=== PATIENT | male | born 1940 | race Caucasian/White ===

== ENCOUNTER → 2017-10-20 17:15 | Outpatient (REF) | payer MEDICARE, SELFPAY | LOC: LAB 17:15 | PROVIDERS: Visit Provider Urology | DX: N30.20 Other chronic cystitis without hematuria (principal); N40.1 Benign prostatic hyperplasia with lower urinary tract symptoms; R33.9 Retention of urine, unspecified | CPT/HCPCS: 87086; 87088; 87186 ==

== ENCOUNTER → 2017-12-22 16:37 | Outpatient (REF) | payer MEDICARE, SELFPAY | LOC: LAB 16:37 | PROVIDERS: Visit Provider Urology | DX: N39.0 Urinary tract infection, site not specified (principal) | CPT/HCPCS: 87086 ==

== ENCOUNTER 2020-06-03 12:43 | Emergency (ER) | payer MEDICARE, SELFPAY ==
[2020-06-03 12:50] VITALS: BP 107/70; PULSE 86; RESP 17; TEMP 37; O2SAT 98; BMI 29.5
--- NOTE | 2020-06-03 13:16 | HMH.EDUTC ---
[facility] [place] Disposition Clinical Impression: Exposure to COVID-19 virus Disposition: Home, Self-Care Condition on Discharge: Good Instructions: DI for COVID-19 (Suspected or Confirmed ), Coronavirus Disease 2019, Preventing the Spread of Coronavirus Discharge Instructions Additional Instructions: *Monitor Temp, Over the counter Motrin or Tylenol as directed/as needed Tylenol every 4 hours and Motrin every 6 hours (as long as your family doctor has told you that you can take it) for fever or pain. and straight to ER if unable to lower temp less than 101.0 after medication given Follow up IMMEDIATELY for new or worsening symptoms or no Noticeable improvement over the next 48-72 hours. 911 for difficulty breathing or swallowing You were tested for today for COVID19 your test result should be back in the next 24-48 hours, you may call to the [facility] to see if your test results are back in the next 48 hours [phone] [facility] hours are 9am-9pm You was given a handout with instructions for Self Quarantine and Self isolation for while you wait on test results and what to do if they are positive If you are positive the Health Dept will be contacting you also Referrals: Rishi Balderas [Primary Care Provider] - As needed Time of Disposition: 13:26 Medical Decision Making - Ramón Inquiry Pt receiving controlled substance: No Ramón was queried for this patient: No Vital Signs: 06/03/20 12:50 Temperature 98.6 F Temperature Source Oral Pulse Rate [Right Brachial] 86 Respiratory Rate 17 Blood Pressure [Right Arm] 107/70 L Blood Pressure Mean [Right Arm] 82 Blood Pressure Source [Right Arm] Automatic Cuff Blood Pressure Position [Right Arm] Sitting 02 Sat by Pulse Oximetry 98 Oxygen Delivery Method Room Air Orders (Tests/Meds): ORDERS Category Date Time Status Covid-19 Nasal PCR ([facility]) Routine Lab 06/03/20 12:48 Received [facility] HPI - General Stated complaint: covid test Time Seen by Provider: 06/03/20 13:16 Mode of Arrival: Ambulatory Source of Information: Patient Limitations: No Limitations Description of Symptoms (Recalled from Triage Doc. by RN): COVID TEST D/T EXPOSURE. C/O FATIGUE AND HEADACHE HEENT Symptoms (Recalled from RN notes): Yes Resp Symptoms (Recalled from RN notes): No Skin Symptoms (Recalled from RN notes): No MS Symptoms (Recalled from RN notes): No Functional Status (Recalled from RN notes): WNL - History of Present Illness Provider Complaint: Patient state that he was recently around his sister and she tested positive for COVID State that for the last week or so he has been feeling tired, low grade fever and laying around alot State that he was worried so he came in to get tested for COVID - Related Data Home Medications Medication Instructions Recorded Confirmed aspirin 81 mg chewable tablet 81 mg PO ONCE 06/04/17 03/07/20 cetirizine 10 mg capsule 10 mg PO DAILY cap 06/04/17 03/07/20 doxazosin 8 mg tablet 8 mg PO DAILY tab 06/04/17 03/07/20 geriatric zvxeavkd-ldbb-netx 1 tab PO QDAY 06/04/17 03/07/20 glucosam 750 mg-chondroi 100 1 tab PO DAILY 06/04/17 03/07/20 mg-hyalur 1.65 mg-CF borate 108 mg tablet ibuprofen 100 mg tablet 200 mg PO ONCE 06/04/17 03/07/20 lisinopril 5 mg tablet 5 mg PO QDAY 06/04/17 03/07/20 omeprazole 20 mg capsule,delayed 20 mg PO BID 06/04/17 03/07/20 release polyethylene glycol 3350 17 17 g PO QDAY PRN 06/04/17 03/07/20 gram/dose oral powder pravastatin 40 mg tablet 40 mg PO QHS 06/04/17 03/07/20 finasteride 5 mg tablet 5 mg PO DAILY 30 Days #30 09/29/17 03/07/20 escitalopram oxalate 5 mg tablet 5 mg PO tab 07/13/19 03/07/20 Allergies Allergy/AdvReac Type Severity Reaction Status Date / Time No Known Allergies Allergy Verified 03/07/20 09:31 - Worker's Comp Is this a Worker's Comp case?: No [facility] History - Hepatitis A Screen Drug use history?: No High risk sexual behaviors?: No History of sexually transmitted infection?: No Currently
[2020-06-03 13:32] VITALS: BP 107/70; PULSE 86; RESP 17; TEMP 37; O2SAT 98
--- NOTE | 2020-06-03 20:36 | PC.NURSE ---
PT NOTIFIED OF POSITIVE COVID RESULTS
== END 2020-06-03 13:40 | disposition home or self-care (01) ==
PROVIDERS: Emergency Provider Nurse Practitioner; PCP Internal Medicine
DX: U07.1 COVID-19 (principal); I10 Essential (primary) hypertension; K21.9 Gastro-esophageal reflux disease without esophagitis; E78.5 Hyperlipidemia, unspecified; E03.9 Hypothyroidism, unspecified; Z79.899 Other long term (current) drug therapy
CPT/HCPCS: G0463; 99202; U0003

== ENCOUNTER → 2021-04-09 12:29 | Outpatient (CLI) | payer MEDICARE, SELFPAY ==
[2021-04-09 15:36] LABS: Alanine Aminotransferase 40 U/L (12-78); Albumin Level 4.5 g/dl (3.5-5.0); Albumin/Globulin Ratio 1.7 (1.1-1.8); Alkaline Phosphatase 70 U/L (38-126); Anion Gap 12.6 mEq/L (5-15); Aspartate Amino Transferase 43 U/L (17-59); Bilirubin,Total 0.8 mg/dl (0.2-1.3); Blood Urea Nitrogen 20 mg/dl (9-20); Calcium 9.5 mg/dl (8.4-10.2); Carbon Dioxide 28 mmol/L (22.0-30.0); Chloride 101 mmol/L (98-107); Chol/HDL Ratio 5.2 (1-3.5); Cholesterol 141 mg/dl (140-200); Estimated Glomerular Filt Rate 72 ml/min (>60); GFR (African American) 87 ML/MIN (>60); Globulin 2.6 g/dL (1.3-3.2); Glucose 95 mg/dl (74-100); HDL Cholesterol 27 mg/dl (40-60); Potassium 4.6 mmoL/L (3.5-5.1); Sodium 137 mmol/L (136-145); Total Protein,Serum 7.1 g/dl (6.3-8.2); Triglycerides 195 mg/dl (30-150); VLDL Cholesterol 39 mg/dL (0-40)
[2021-04-09 15:47] LABS: Direct LDL Cholesterol 89.68 mg/dL (100-129)
[2021-04-09 16:05] LABS: Prostate Specific Ag Screen 0.9 ng/ml (0.0-4.0)
== END ==
PROVIDERS: Visit Provider Internal Medicine
DX: I10 Essential (primary) hypertension (principal); E78.5 Hyperlipidemia, unspecified; N18.9 Chronic kidney disease, unspecified; N40.1 Benign prostatic hyperplasia with lower urinary tract symptoms; Z12.5 Encounter for screening for malignant neoplasm of prostate
CPT/HCPCS: 80053; 80061; G0103

== ENCOUNTER → 2021-06-04 13:47 | Outpatient (POV) | payer MEDICARE, SELFPAY | PROVIDERS: Visit Provider Dermatology | DX: Z00.00 Encounter for general adult medical examination without abnormal findings (principal) ==

== ENCOUNTER → 2021-09-10 13:57 | Outpatient (POV) | payer MEDICARE, SELFPAY | PROVIDERS: Visit Provider Dermatology | DX: Z00.00 Encounter for general adult medical examination without abnormal findings (principal) ==

== ENCOUNTER → 2021-10-04 12:21 | Outpatient (CLI) | payer MEDICARE, SELFPAY ==
[2021-10-04 13:05] LABS: Basophils # 0.1 K/mm3 (0-0.2); Basophils % 0.7 % (0.1-2.0); Eosinophils # 0.1 K/mm3 (0.0-0.4); Eosinophils % 1.4 % (0.1-12.0); Hematocrit 45.2 % (42.0-52.0); Hemoglobin 15.5 g/dL (14.1-18.0); Lymphocytes # 1.7 K/mm3 (0.7-4.5); Lymphocytes % 25.3 % (10-50); Mean Corpuscular HGB Conc 34.3 g/dL (31.8-35.4); Mean Corpuscular Hemoglobin 30.3 pg (27.0-31.2); Mean Corpuscular Volume 88.5 fl (80-94); Mean Platelet Volume 8.8 fl (7.4-10.4); Monocytes # 0.4 K/mm3 (0.1-1.0); Monocytes % 5.5 % (1.7-9.3); Neutrophils # 4.6 K/mm3 (1.8-7.8); Neutrophils % 67.1 % (37.0-80.0); Platelet Count 197 K/mm3 (142-424); Red Blood Count 5.11 M/mm3 (4.60-6.20); Red Cell Distribution Width 12.9 % (11.5-17.5); White Blood Count 6.9 K/mm3 (4.8-10.8)
[2021-10-04 13:39] LABS: Chloride 102 mmol/L (98-107)
[2021-10-04 13:40] LABS: Potassium 4.5 mmoL/L (3.5-5.1); Sodium 138 mmol/L (136-145)
[2021-10-04 13:42] LABS: Alanine Aminotransferase 47 U/L (12-78); Anion Gap 13.5 mEq/L (5-15); Aspartate Amino Transferase 45 U/L (17-59); Blood Urea Nitrogen 19 mg/dl (9-20); Carbon Dioxide 27 mmol/L (22.0-30.0); Estimated Glomerular Filt Rate 81 ml/min (>60); GFR (African American) 98 ML/MIN (>60)
[2021-10-04 13:43] LABS: Albumin Level 4.5 g/dl (3.5-5.0); Albumin/Globulin Ratio 1.7 (1.1-1.8); Alkaline Phosphatase 76 U/L (38-126); Bilirubin,Total 1.1 mg/dl (0.2-1.3); Calcium 9.6 mg/dl (8.4-10.2); Cholesterol 147 mg/dl (140-200); Globulin 2.7 g/dL (1.3-3.2); Glucose 112 mg/dl (74-100); HDL Cholesterol 25 mg/dl (40-60); Total Protein,Serum 7.2 g/dl (6.3-8.2); Triglycerides 188 mg/dl (30-150); VLDL Cholesterol 38 mg/dL (0-40)
[2021-10-04 13:44] LABS: Chol/HDL Ratio 5.9 (1-3.5)
[2021-10-04 14:00] LABS: Direct LDL Cholesterol 96.61 mg/dL (100-129)
== END ==
PROVIDERS: PCP Internal Medicine; Visit Provider Internal Medicine
DX: I10 Essential (primary) hypertension (principal); E78.5 Hyperlipidemia, unspecified; R73.01 Impaired fasting glucose; K76.0 Fatty (change of) liver, not elsewhere classified; N18.2 Chronic kidney disease, stage 2 (mild); Z85.820 Personal history of malignant melanoma of skin
CPT/HCPCS: 80053; 80061; 85025

== ENCOUNTER → 2022-04-08 12:32 | Outpatient (CLI) | payer MEDICARE, SELFPAY ==
[2022-04-08 14:45] LABS: Alanine Aminotransferase 45 U/L (12-78); Albumin Level 4.6 g/dl (3.5-5.0); Albumin/Globulin Ratio 1.8 (1.1-1.8); Alkaline Phosphatase 93 U/L (38-126); Anion Gap 22.4 mEq/L (5-15); Aspartate Amino Transferase 43 U/L (17-59); Blood Urea Nitrogen 18 mg/dl (9-20); Calcium 9.8 mg/dl (8.4-10.2); Carbon Dioxide 26 mmol/L (22.0-30.0); Chloride 97 mmol/L (98-107); Chol/HDL Ratio 4.7 (1-3.5); Cholesterol 147 mg/dl (140-200); Estimated Glomerular Filt Rate 81 ml/min (>60); GFR (African American) 98 ML/MIN (>60); Globulin 2.5 g/dL (1.3-3.2); Glucose 92 mg/dl (74-100); HDL Cholesterol 31 mg/dl (40-60); Potassium 4.4 mmoL/L (3.5-5.1); Sodium 141 mmol/L (136-145); Total Protein,Serum 7.1 g/dl (6.3-8.2); Triglycerides 149 mg/dl (30-150); VLDL Cholesterol 30 mg/dL (0-40)
[2022-04-08 14:56] LABS: Direct LDL Cholesterol 93.68 mg/dL (100-129)
== END ==
PROVIDERS: PCP Internal Medicine; Visit Provider Internal Medicine
DX: I10 Essential (primary) hypertension (principal); E78.5 Hyperlipidemia, unspecified; R97.20 Elevated prostate specific antigen [PSA]; Z12.5 Encounter for screening for malignant neoplasm of prostate
CPT/HCPCS: 80053; 80061; G0103

== ENCOUNTER → 2022-09-09 14:07 | Outpatient (POV) | payer MEDICARE, SELFPAY | PROVIDERS: Visit Provider Dermatology | DX: Z00.00 Encounter for general adult medical examination without abnormal findings (principal) ==

== ENCOUNTER → 2022-09-30 11:15 | Outpatient (CLI) | payer MEDICARE, SELFPAY ==
[2022-09-30 12:22] LABS: Basophils % 0.6 % (0.1-2.0); Eosinophils # 0.2 K/mm3 (0.0-0.4); Eosinophils % 2.7 % (0.1-12.0); Hematocrit 46.2 % (42.0-52.0); Hemoglobin 15.5 g/dL (14.1-18.0); Lymphocytes % 27.4 % (10-50); Mean Corpuscular HGB Conc 33.5 g/dL (31.8-35.4); Mean Corpuscular Hemoglobin 30.5 pg (27.0-31.2); Mean Platelet Volume 9.5 fl (7.4-10.4); Monocytes # 0.5 K/mm3 (0.1-1.0); Monocytes % 6.3 % (1.7-9.3); Neutrophils # 4.5 K/mm3 (1.8-7.8); Platelet Count 200 K/mm3 (142-424); Red Blood Count 5.08 M/mm3 (4.60-6.20); Red Cell Distribution Width 13.2 % (11.5-17.5); White Blood Count 7.2 K/mm3 (4.8-10.8)
[2022-09-30 12:54] LABS: Alanine Aminotransferase 41 U/L (12-78); Albumin Level 4.4 g/dl (3.5-5.0); Albumin/Globulin Ratio 1.6 (1.1-1.8); Alkaline Phosphatase 83 U/L (38-126); Anion Gap 19.4 mEq/L (5-15); Aspartate Amino Transferase 37 U/L (17-59); Bilirubin,Total 1.1 mg/dl (0.2-1.3); Blood Urea Nitrogen 19 mg/dl (9-20); Calcium 9.2 mg/dl (8.4-10.2); Carbon Dioxide 28 mmol/L (22.0-30.0); Chloride 95 mmol/L (98-107); Chol/HDL Ratio 4.7 (1-3.5); Cholesterol 131 mg/dl (140-200); Estimated Glomerular Filt Rate 81 ml/min (>60); GFR (African American) 98 ML/MIN (>60); Globulin 2.7 g/dL (1.3-3.2); Glucose 100 mg/dl (74-100); HDL Cholesterol 28 mg/dl (40-60); Potassium 4.4 mmoL/L (3.5-5.1); Sodium 138 mmol/L (136-145); Total Protein,Serum 7.1 g/dl (6.3-8.2); Triglycerides 224 mg/dl (30-150); VLDL Cholesterol 45 mg/dL (0-40)
[2022-09-30 13:05] LABS: Direct LDL Cholesterol 82.55 mg/dL (100-129)
== END ==
PROVIDERS: PCP Internal Medicine; Visit Provider Internal Medicine
DX: R73.01 Impaired fasting glucose (principal); I10 Essential (primary) hypertension; E78.5 Hyperlipidemia, unspecified; R76.0 Raised antibody titer
CPT/HCPCS: 80053; 80061; 85025

== ENCOUNTER → 2023-03-31 13:27 | Outpatient (CLI) | payer MEDICARE, SELFPAY ==
[2023-03-31 16:55] LABS: Alanine Aminotransferase 38 U/L (12-78); Albumin Level 4.6 g/dl (3.5-5.0); Albumin/Globulin Ratio 1.7 (1.1-1.8); Alkaline Phosphatase 74 U/L (38-126); Anion Gap 14.3 mEq/L (5-15); Aspartate Amino Transferase 37 U/L (17-59); Bilirubin,Total 1.2 mg/dl (0.2-1.3); Blood Urea Nitrogen 19 mg/dl (9-20); Calcium 9.1 mg/dl (8.4-10.2); Carbon Dioxide 27 mmol/L (22.0-30.0); Chloride 101 mmol/L (98-107); Chol/HDL Ratio 5.7 (1-3.5); Cholesterol 148 mg/dl (140-200); Estimated Glomerular Filt Rate 81 ml/min (>60); GFR (African American) 98 ML/MIN (>60); Globulin 2.7 g/dL (1.3-3.2); Glucose 90 mg/dl (74-100); HDL Cholesterol 26 mg/dl (40-60); Potassium 4.3 mmoL/L (3.5-5.1); Sodium 138 mmol/L (136-145); Total Protein,Serum 7.3 g/dl (6.3-8.2); Triglycerides 188 mg/dl (30-150); VLDL Cholesterol 38 mg/dL (0-40)
[2023-03-31 17:06] LABS: Direct LDL Cholesterol 97.11 mg/dL (100-129)
== END ==
PROVIDERS: PCP Internal Medicine; Visit Provider Internal Medicine
DX: Z12.5 Encounter for screening for malignant neoplasm of prostate (principal); I12.9 Hypertensive chronic kidney disease with stage 1 through stage 4 chronic kidney disease, or unspecified chronic kidney disease; N18.2 Chronic kidney disease, stage 2 (mild); E78.5 Hyperlipidemia, unspecified; K76.0 Fatty (change of) liver, not elsewhere classified; M15.0 Primary generalized (osteo)arthritis; R73.01 Impaired fasting glucose
CPT/HCPCS: 80053; 80061; G0103

== ENCOUNTER 2023-09-01 09:30 | Outpatient (POV) | payer MEDICARE, SELFPAY | END 2023-09-01 23:59 | disposition home or self-care (01) | LOC: SC 09:30 | PROVIDERS: PCP Internal Medicine; Visit Provider Dermatology | DX: Z00.00 Encounter for general adult medical examination without abnormal findings (principal) ==

== ENCOUNTER 2023-09-29 15:07 | Outpatient (POV) | payer MEDICARE, SELFPAY | END 2023-09-29 23:59 | disposition home or self-care (01) | LOC: SC 15:07 | PROVIDERS: PCP Internal Medicine; Visit Provider Dermatology | DX: Z00.00 Encounter for general adult medical examination without abnormal findings (principal) ==

== ENCOUNTER 2023-09-29 16:51 | Outpatient (CLI) | payer MEDICARE, SELFPAY ==
[2023-09-29 17:26] LABS: Basophils % 0.5 % (0.1-2.0); Eosinophils # 0.2 K/mm3 (0.0-0.4); Eosinophils % 2.9 % (0.1-12.0); Hematocrit 44.9 % (42.0-52.0); Hemoglobin 14.7 g/dL (14.1-18.0); Lymphocytes # 1.5 K/mm3 (0.7-4.5); Lymphocytes % 23.5 % (10-50); Mean Corpuscular HGB Conc 32.8 g/dL (31.8-35.4); Mean Corpuscular Hemoglobin 30.4 pg (27.0-31.2); Mean Corpuscular Volume 92.6 fl (80-94); Mean Platelet Volume 9.7 fl (7.4-10.4); Monocytes # 0.4 K/mm3 (0.1-1.0); Monocytes % 6.3 % (1.7-9.3); Neutrophils # 4.4 K/mm3 (1.8-7.8); Neutrophils % 66.9 % (37.0-80.0); Platelet Count 198 K/mm3 (142-424); Red Blood Count 4.85 M/mm3 (4.60-6.20); Red Cell Distribution Width 13.7 % (11.5-17.5); White Blood Count 6.5 K/mm3 (4.8-10.8)
[2023-09-29 17:56] LABS: Alanine Aminotransferase 29 U/L (12-78); Albumin Level 4.3 g/dl (3.5-5.0); Albumin/Globulin Ratio 1.7 (1.1-1.8); Alkaline Phosphatase 75 U/L (38-126); Aspartate Amino Transferase 37 U/L (17-59); Blood Urea Nitrogen 17 mg/dl (9-20); Calcium 9.5 mg/dl (8.4-10.2); Carbon Dioxide 28 mmol/L (22.0-30.0); Chloride 101 mmol/L (98-107); Chol/HDL Ratio 5.1 (1-3.5); Cholesterol 138 mg/dl (140-200); Estimated Glomerular Filt Rate 93 ml/min (>60); GFR (African American) 112 ML/MIN (>60); Globulin 2.5 g/dL (1.3-3.2); Glucose 89 mg/dl (74-100); HDL Cholesterol 27 mg/dl (40-60); Sodium 141 mmol/L (136-145); Total Protein,Serum 6.8 g/dl (6.3-8.2); Triglycerides 197 mg/dl (30-150); VLDL Cholesterol 39 mg/dL (0-40)
[2023-09-29 18:07] LABS: Direct LDL Cholesterol 84.89 mg/dL (100-129)
== END 2023-09-29 23:59 | disposition home or self-care (01) ==
LOC: LAB.DROPOF 16:51
PROVIDERS: PCP Internal Medicine; Visit Provider Internal Medicine
DX: I12.9 Hypertensive chronic kidney disease with stage 1 through stage 4 chronic kidney disease, or unspecified chronic kidney disease (principal); N18.2 Chronic kidney disease, stage 2 (mild); E78.5 Hyperlipidemia, unspecified; K76.0 Fatty (change of) liver, not elsewhere classified; M15.0 Primary generalized (osteo)arthritis; R73.01 Impaired fasting glucose; Z12.5 Encounter for screening for malignant neoplasm of prostate
CPT/HCPCS: 80053; 80061; 85025

== ENCOUNTER 2024-01-09 00:27 | Emergency (ER) | payer MEDICARE, SELFPAY ==
--- NOTE | 2024-01-09 00:27 | ECG_ITS ---
APPROVED REPORT Exam: Resting ECG HR:82 bpm ECG Measurements Heart Rate 82 AXES SD 165 P 12 QRSd 127 QRS 69 QT 371 T -1 QTc 410 Conclusion SINUS RHYTHM RIGHT BUNDLE BRANCH BLOCK [120+ ms QRS DURATION, UPRIGHT V1, 40+ ms S IN I/aVL/V4/V5/V6] POSSIBLE ANTERIOR MYOCARDIAL INFARCTION , OF INDETERMINATE AGE [30 ms Q WAVE IN V3/V4, OR R < 0.2 mV IN V4] ABNORMAL ECG Electronically signed by : CRISTHIAN PERDOMO, 01/12/2024 18:22:44
[2024-01-09 00:28] VITALS: BP 114/83; PULSE 88; RESP 20; TEMP 39.6; O2SAT 94; BMI 29.5
--- NOTE | 2024-01-09 00:34 | XR_ITS ---
PROCEDURE INFORMATION: Exam: XR Right Tibia and Fibula Exam date and time: 01/09/2024 12:53 AM Age: 83 years old Clinical indication: Injury or trauma; Fall; Other: Pain TECHNIQUE: Imaging protocol: Radiologic exam of the right tibia and fibula. Views: 2 views. COMPARISON: No relevant prior studies available. FINDINGS: Bones/joints: The osseous structures are intact, with no signs of acute fracture, dislocation, or malalignment. Age-related degenerative changes are observed. There is no evidence of abnormal bone density or destructive lesions. Soft tissues: The soft tissues appear within normal limits. Vasculature: Scattered atherosclerotic disease of the arterial vasculature. IMPRESSION: At the time of imaging, the study shows no acute osseous abnormalities but does reveal signs of age-related degenerative changes.
--- NOTE | 2024-01-09 00:34 | ED_ITS ---
Discharge Plan Disposition Patient Disposition: Home, Self-Care Prescriptions Prescriptions: No Action doxazosin 8 mg tablet 8 mg PO DAILY lisinopril 5 mg tablet 5 mg PO QDAY pravastatin 40 mg tablet 40 mg PO QHS omeprazole 20 mg capsule,delayed release(DR/EC) 20 mg PO BID polyethylene glycol 3350 [Miralax] 17 gram/dose powder 17 g PO QDAY PRN (Reason: Constipation) wplfxwkd-kdytb-xgwlf-CF borate [[facility] [employer]] 750 mg-100 mg- 1.65 mg-108 mg tablet 1 tab PO DAILY geriatric jskkjwfy-qmtr-baiq tablet 1 tab PO QDAY aspirin [Rc Chewable Aspirin] 81 mg tablet,chewable 81 mg PO ONCE cetirizine [Zyrtec] 10 mg capsule 10 mg PO DAILY ibuprofen [Advil] 100 mg tablet 200 mg PO ONCE finasteride 5 mg tablet 5 mg PO DAILY 30 Days Qty: 30 Patient Comments: take 1 tablet by mouth once daily escitalopram oxalate 5 mg tablet 5 mg PO Referrals Follow up/Referrals: Rishi Balderas MD [Primary Care Provider] - See instructions Activity Restrictions/Add. Instructions Additional Instructions/Restrictions: Please follow-up with your primary care provider. Please return to the emergency department if you develop any new or worsening symptoms or become concerned for your health. Clinical Impressions Clinical Impression: COVID, Generalized weakness Print Language Print Language: Martiniquais Discharge ED Provider: Andrea Christiansen General Adult HPI General Chief complaint: Weakness Stated complaint: covid Time Seen by Provider: 01/09/24 00:30 History of Present Illness HPI narrative: 83-year-old male presents for generalized weakness, shortness of breath, fever. He reports he started feeling bad yesterday afternoon. He took a COVID test which was positive at home. He reports that today he just feels more weak and short of breath. He denies any history of prior lung problems cardiac problems etc. He reports that he has fallen twice, once yesterday, once this evening. reports a little bit of pain in his left tib-fib, otherwise denies any neck pain headache back pain chest pain abdominal pain or other musculoskeletal pain related to his fall. Related Data Home Medications ?Medication ?Instructions ?Recorded ?Confirmed aspirin 81 mg chewable tablet 81 mg PO ONCE Heart disease 06/04/17 01/13/23 (Rc Chewable Low Dose Aspirin) cetirizine 10 mg capsule (Zyrtec) 10 mg PO DAILY Allergy symptoms 06/04/17 01/13/23 doxazosin 8 mg tablet 8 mg PO DAILY memory 06/04/17 01/13/23 geriatric gmrkejwv-tlpw-aetj 1 tab PO QDAY Supplement 06/04/17 01/13/23 glucosam 750 mg-chondroi 100 1 tab PO DAILY Supplement 06/04/17 01/13/23 mg-hyalur 1.65 mg-CF borate 108 mg tablet ([employer]) ibuprofen 100 mg tablet (Advil) 200 mg PO ONCE Pain 06/04/17 01/13/23 lisinopril 5 mg tablet 5 mg PO QDAY blood pressure 06/04/17 01/13/23 omeprazole 20 mg capsule,delayed 20 mg PO BID GERD 06/04/17 01/13/23 release polyethylene glycol 3350 17 17 g PO QDAY PRN Constipation 06/04/17 01/13/23 gram/dose oral powder (Miralax) pravastatin 40 mg tablet 40 mg PO QHS Cholesterol 06/04/17 01/13/23 finasteride 5 mg tablet 5 mg PO DAILY prostate 30 days ##30 09/29/17 01/13/23 escitalopram oxalate 5 mg tablet 5 mg PO 07/13/19 01/13/23 Allergies Allergy/AdvReac Type Severity Reaction Status Date / Time No Known Allergies Allergy Verified 01/13/23 10:11 [facility] Disclaimer: The information contained in this section may have been updated after the patient was seen, as this information can be updated by other users. Medical History Cancer GERD (gastroesophageal reflux disease) HLD (hyperlipidemia) HTN (hypertension), benign Kidney stone Surgical History History of prostate surgery Family History Other Cancer Social History Smoking Status: Never smoker alcohol intake: never counseling provided: none substance use type: denies use current occupational status: retired Travel in the last 8 weeks: None caffeine: No ROS Obtained: Yes All systems reviewed & no additional complaints except as documented Physical Exam General General appearance: alert and in no apparent distress Comment: Mildly diaphoretic Head Head exam: atraumatic and normocephalic Eye Eye exam: Present normal appearance, PERRL and EOMI ENT ENT exam: Present normal oropharynx and normal external ear exam Neck Neck exam: Present normal inspection and full ROM; Absent tenderness (No midline neck tenderness) Chest Chest inspection: Present normal inspection and symmetric chest wall rise; Absent tenderness Respiratory Respiratory exam: Present normal lung sounds bilaterally; Absent respiratory distress Cardiovascular Cardiovascular exam: Present regular rate and normal rhythm Abdominal Exam Abdominal exam: Present soft; Absent distention, tenderness or guarding Extremities Exam Extremities exam: Present normal inspection and tenderness (Mild tenderness and bruising to the right tib-fib. Otherwise no bony tenderness.); Absent edema or joint swelling Back Exam Back exam: Present normal inspection; Absent tenderness (No midline CT or L- spine tenderness.) Neurological Exam Neurological exam: Present alert and oriented X3; Absent motor sensory deficit Psychiatric Psychiatric exam: Present normal affect and normal mood Skin Skin exam: Present warm, dry and normal color Lymphatic Lymphatic Findings: no adenopathy Medical Decision Making Medical Records Medical records reviewed: Yes I reviewed the patient's medical records. Ramón Inquiry Pt receiving controlled substance: No Ramón was queried for this patient: No Vital Signs: 01/09/24 00:28 01/09/24 01:22 Temperature 103.2 F H Temperature Source Oral Pulse Rate 86 Pulse Rate [Right Radial] 88 Respiratory Rate 20 17 Blood Pressure 124/70 Blood Pressure [Right Arm] 114/83 Blood Pressure Mean [Right Arm] 93 Blood Pressure Source [Right Arm] Automatic Cuff Blood Pressure Position [Right Arm] Supine 02 Sat by Pulse Oximetry 94 L 94 L Oxygen Delivery Method Room Air Lab Data Lab results reviewed: Yes I reviewed the patient's lab results. Lab Results 01/09/24 00:30: WBC 10.5, RBC 5.09, Hgb 15.5, Hct 46.5, MCV 91.3, MCH 30.4, MCHC 33.3, RDW 13.9, Plt Count 162, MPV 8.9, Neut % (Auto) 86.9 H, Lymph % (Auto) 5.2 L, Gregory % (Auto) 6.1, Eos % (Auto) 1.2, Baso % (Auto) 0.6, Neut # (Auto) 9.1 H, Lymph # (Auto) 0.6 L, Gregory # (Auto) 0.6, Eos # (Auto) 0.1, Baso # (Auto) 0.1, Total Counted 100, Neutrophils % (Manual) 81 H, Lymphocytes % (Manual) 8 L, M onocytes % (Manual) 11 H, Platelet Estimate Normal, RBC Morphology Normal, S odium 133 L, Potassium 4.3, Chloride 102, Carbon Dioxide 22, Anion Gap 13.3, BUN 19, Creatinine 1.00, Estimated Creat Clear 77, Estimated GFR 72, Est GFR ( Amer) 87, Glucose 156 H, Calcium 9.4, Total Bilirubin 1.1, AST 115 H, ALT 51, Alkaline Phosphatase 76, Troponin I 0.02, Total Protein 7.7, Albumin 4.3, Globulin 3.4 H, Albumin/Globulin Ratio 1.3 01/09/24 01:14: SARS-CoV-2 (PCR) Detected A, Influenza A Untype (PCR) Not detected, Influenza Type B (PCR) Not detected 01/09/24 00:30 01/09/24 00:30 Orders (Tests/Meds): ED MEDICATIONS Discontinued Medications Generic Name Dose Route Start Last Admin Trade Name Freq PRN Reason Stop Dose Admin Acetaminophen 1,000 mg 01/09/24 00:34 01/09/24 00:47 Acetaminophen 500mg Tab PO 01/09/24 00:35 1,000 mg ONCE ONE Administration Lactated Ringer's 1,000 mls @ 999 mls/hr 01/09/24 00:45 01/09/24 00:48 Lactated Ringer's 1000 Ml Bag IV 01/09/24 01:45 999 mls/hr .Q1H1M MYRA Administration Ondansetron HCl 4 mg 01/09/24 00:34 01/09/24 00:47 Ondansetron 4mg/2ml Vial IV 01/09/24 00:35 4 mg ONCE ONE Administration ORDERS Category Date Time Status CT bony pelvis Stat Cat Scan 01/09/24 02:[address] cervical spine wo con Stat Cat Scan 01/09/24 00:[address] head/brain wo con Stat Cat Scan 01/09/24 00:35 Completed CXR --portable [XR chest portable] Stat Exams 01/09/24 00:35 Completed Fibula/tibia XR right 2 views [XR tibia fibula RT 2V] Exams 01/09/24 00:34 Completed Stat Pelvis XR 1-2 views [XR pelvis 1-2V] Stat Exams 01/09/24 00:35 Completed CBC w/Auto Diff [Complete Blood Count Auto Diff] Stat Lab 01/09/24 00:30 Completed CMP [Comprehensive Metabolic Panel] Stat Lab 01/09/24 00:30 Completed Rapid PCR Covid and Flu A/B Stat Lab 01/09/24 01:14 Completed Troponin I Q3H Lab 01/09/24 00:30 Completed ECG Data Tracing #1: I reviewed this ECG and interpreted as documented below: Sinus rhythm, ventricular rate of 82, no concerning ST elevation. Right bundle branch block noted. ECG initial impression date: 01/09/24 ECG initial impression time: 00:27 HEART Score History (anamnesis): Slightly suspicious ECG: Non-specific disturbance Age: >65 years Risk factors: 1-2 risk factors Troponin: </= normal limit HEART Score: 4 Medical Decision Narrative: 83-year-old male with history of hypertension presents with fever, generalized weakness and shortness of breath after testing positive for COVID yesterday. History was obtained via interactive discussion with patient, family. On arrival, patient is febrile to 103, generally well-appearing though diaphoretic, moving all extremities spontaneously. Full physical exam performed and significant for clear lungs bilaterally, no significant lower extremity edema, right tib-fib tenderness. Differential includes but is not limited to trauma related to his fall, COVID, pneumonia, UTI, electrolyte derangement. Patient was given Tylenol and with a fluid bolus for symptomatic management and correction of underlying abnormalities. Patient did not require a full sepsis bolus. Workup initiated including CBC CMP troponin EKG chest x-ray pelvis x-ray CT head CT C-spine x-ray of the tib-fib of the right. On re-evaluation, patient remains hemodynamically stable. Laboratory workup independently interpreted by me and significant for initial negative troponin (given presentation, single troponin should suffice), no significant leukocytosis, mildly elevated AST, Imaging independently interpreted by me and significant for subtle irregularity in the pelvic film, CT pelvis also ordered. CT head and C-spine showed degenerative changes but no acute traumatic findings. Chest x-ray shows no obvious rib fractures, no infiltrates to suggest pneumonia or effusion. CT bony pelvis shows chronic degenerative changes but no acute fracture.. See radiology read for full review of final results. Given patient history, exam and workup, patient's presentation most likely represents generalized weakness and fever secondary to acute COVID infection. Patient was ambulated and remained greater than 90% throughout ambulation. He was able to walk without significant difficulty. I had repeated and extensive discussion with patient and family regarding presentation. I considered admission for generalized weakness and COVID infection given his age. However, given he is well-appearing, has had normal oxygenation throughout and has an otherwise negative workup, I do not think he necessarily has to be admitted. After discussion with family, we elected to discharge with strict return precautions and they will have additional help at home for the next few days. Procedures Risk/Benefits of Procedure(s) Were Explained: Yes Critical Care Critical Care Time Critical Care Time: No
--- NOTE | 2024-01-09 00:35 | XR_ITS ---
PROCEDURE INFORMATION: Exam: XR Chest Exam date and time: 01/09/2024 12:53 AM Age: 83 years old Clinical indication: Injury or trauma; Fall; Other: Pain TECHNIQUE: Imaging protocol: Radiologic exam of the chest. Views: 1 view. COMPARISON: CR XR CHEST PORTABLE 01/09/2024 12:53 AM FINDINGS: Lungs: No evidence of acute pulmonary disease or infiltrates Pleural spaces: No large effusion or pneumothorax. Heart/Mediastinum: Stable cardiac and mediastinal contours. Diaphragm: There is elevation of the right hemidiaphragm. Bones/joints: No evidence of acute osseous abnormalities within the visualized portions of the thoracic spine and ribs. Osseous structures appear appropriate for patient age. IMPRESSION: No dense parenchymal consolidation, pleural effusion, or pneumothorax.
--- NOTE | 2024-01-09 00:35 | CT_ITS ---
PROCEDURE INFORMATION: Exam: CT Cervical Spine Without Contrast Exam date and time: 01/09/2024 12:56 AM Age: 83 years old Clinical indication: Injury or trauma; Fall; Other: Pain TECHNIQUE: Imaging protocol: Computed tomography of the cervical spine without contrast. Radiation optimization: All CT scans at this facility use at least one of these dose optimization techniques: automated exposure control; mA and/or kV adjustment per patient size (includes targeted exams where dose is matched to clinical indication); or iterative reconstruction. COMPARISON: 1. CT HEAD/BRAIN WO CON 01/09/2024 12:53 AM 2. CR XR CHEST PORTABLE 01/09/2024 12:53 AM FINDINGS: Bones: There is diffuse osseous demineralization. The cervical spine shows relatively preserved alignment of the vertebral bodies with no evidence of acute fractures or dislocations. However, age-related degenerative changes are observed, including mild disc space narrowing and osteophyte formation at multiple levels. These findings are consistent with age related degenerative disease. There is an inflammatory pannus with calcification associated with the dens. There is moderate multilevel canal stenosis at C3-C4, C4-C5, C5-C6, and C6-C7. Teeth: There is dental amalgam which causes streak artifact and mildly limits evaluation of the oral cavity. Lungs: Lung apices are normal. Soft tissues: Unremarkable. IMPRESSION: 1. Multilevel degenerative change without acute injury identified. 2. Moderate multilevel degenerative canal stenosis from C3 through C7. Consider MRI for more complete evaluation as warranted.
--- NOTE | 2024-01-09 00:35 | CT_ITS ---
PROCEDURE INFORMATION: Exam: CT Head Without Contrast Exam date and time: 01/09/2024 12:53 AM Age: 83 years old Clinical indication: Injury or trauma; Fall; Other: Pain TECHNIQUE: Imaging protocol: Computed tomography of the head without contrast. Radiation optimization: All CT scans at this facility use at least one of these dose optimization techniques: automated exposure control; mA and/or kV adjustment per patient size (includes targeted exams where dose is matched to clinical indication); or iterative reconstruction. COMPARISON: CT HEAD/BRAIN WO CON 01/09/2024 12:53 AM FINDINGS: Brain: The brain parenchyma appears unremarkable, with no signs of acute intracranial hemorrhage or significant mass effect. There is hypodensity in the subcortical and periventricular white matter which is technically nonspecific but most often related to chronic microvascular disease. Cerebral ventricles: Mild ventricular enlargement consistent with age-related cerebral atrophy is noted. Paranasal sinuses: Paranasal sinuses show age-appropriate mucosal thickening. Mastoid air cells: Visualized mastoid air cells are well aerated. Teeth: There is dental amalgam which causes streak artifact and mildly limits evaluation of the oral cavity. Bones: There are no skull fractures or bony lesions. Soft tissues: There are few areas of dermal and subdermal calcification. IMPRESSION: Presumably age-related and chronic changes without acute intracranial abnormality.
--- NOTE | 2024-01-09 00:35 | XR_ITS ---
PROCEDURE INFORMATION: Exam: XR Pelvis Exam date and time: 01/09/2024 12:53 AM Age: 83 years old Clinical indication: Injury or trauma; Fall; Other: Pain TECHNIQUE: Imaging protocol: Radiologic exam of the pelvis. Views: 1 or 2 view. COMPARISON: No relevant prior studies available. FINDINGS: Bones/joints: There is mild degenerative change of the hips. There is partially visualized degenerative change of the lumbar spine. There is slight cortical irregularity involving the right superior pubic ramus which could reflect a nondisplaced fracture. Soft tissues: Unremarkable. IMPRESSION: There is slight cortical irregularity involving the right superior pubic ramus which could reflect a nondisplaced fracture.
[2024-01-09 00:42] LABS: Basophils # 0.1 K/mm3 (0-0.2); Basophils % 0.6 % (0.1-2.0); Eosinophils # 0.1 K/mm3 (0.0-0.4); Eosinophils % 1.2 % (0.1-12.0); Hematocrit 46.5 % (42.0-52.0); Hemoglobin 15.5 g/dL (14.1-18.0); Lymphocytes # 0.6 K/mm3 (0.7-4.5); Lymphocytes % 5.2 % (10-50); Mean Corpuscular HGB Conc 33.3 g/dL (31.8-35.4); Mean Corpuscular Hemoglobin 30.4 pg (27.0-31.2); Mean Corpuscular Volume 91.3 fl (80-94); Mean Platelet Volume 8.9 fl (7.4-10.4); Monocytes # 0.6 K/mm3 (0.1-1.0); Monocytes % 6.1 % (1.7-9.3); Neutrophils # 9.1 K/mm3 (1.8-7.8); Neutrophils % 86.9 % (37.0-80.0); Platelet Count 162 K/mm3 (142-424); Red Blood Count 5.09 M/mm3 (4.60-6.20); Red Cell Distribution Width 13.9 % (11.5-17.5); White Blood Count 10.5 K/mm3 (4.8-10.8)
[2024-01-09 00:44] LABS: MANUAL DIFFERENTIAL MANUAL DIFFERENTIAL (MANUAL DIFF)
[2024-01-09] MEDS: ACETAMINOPHEN 500MG TAB 1000 MG PO (00:47)
[2024-01-09] MEDS: ONDANSETRON 4MG/2ML VIAL 4 MG IV (00:47)
[2024-01-09] MEDS: LACTATED RINGERS 1000ML 1,000 ML 999 ML IV (00:48)
[2024-01-09 00:51] LABS: Alanine Aminotransferase 51 U/L (12-78); Albumin Level 4.3 g/dl (3.5-5.0); Albumin/Globulin Ratio 1.3 (1.1-1.8); Alkaline Phosphatase 76 U/L (38-126); Anion Gap 13.3 mEq/L (5-15); Aspartate Amino Transferase 115 U/L (17-59); Bilirubin,Total 1.1 mg/dl (0.2-1.3); Blood Urea Nitrogen 19 mg/dl (9-20); Calcium 9.4 mg/dl (8.4-10.2); Carbon Dioxide 22 mmol/L (22.0-30.0); Chloride 102 mmol/L (98-107); Creatinine Clearance Estimated 77 mL/min (50-200); Estimated Glomerular Filt Rate 72 ml/min (>60); GFR (African American) 87 ML/MIN (>60); Globulin 3.4 g/dL (1.3-3.2); Glucose 156 mg/dl (74-100); Potassium 4.3 mmoL/L (3.5-5.1); Sodium 133 mmol/L (136-145); Total Protein,Serum 7.7 g/dl (6.3-8.2)
[2024-01-09 00:56] LABS: Lymphocytes % 8 % (10-50); Monocytes % 11 % (2-9); Neutrophils % 81 % (42-76); Total Cells Counted 100
[2024-01-09 00:57] LABS: RBC Morphology Normal
[2024-01-09 00:58] LABS: Platelet Estimate Normal
[2024-01-09 01:03] LABS: Troponin I 0.02 ng/ml (0.00-0.034)
[2024-01-09 01:20] LABS: Influenza A, PCR Not Detected (NotDetected); Influenza B, PCR Not Detected (NotDetected)
[2024-01-09 01:22] VITALS: BP 124/70; PULSE 86; RESP 17; O2SAT 94
[2024-01-09 01:44] LABS: Coronavirus 19, PCR Detected (NotDetected)
--- NOTE | 2024-01-09 02:28 | CT_ITS ---
PROCEDURE INFORMATION: Exam: CT Pelvis Without Contrast, Skeleton Exam date and time: 01/09/2024 2:49 AM Age: 83 years old Clinical indication: Injury or trauma; Fall; Other: Pain; Additional info: Fall, irregularity on pelvic film TECHNIQUE: Imaging protocol: Computed tomography of the pelvis without contrast. Exam focused on the skeleton. Radiation optimization: All CT scans at this facility use at least one of these dose optimization techniques: automated exposure control; mA and/or kV adjustment per patient size (includes targeted exams where dose is matched to clinical indication); or iterative reconstruction. COMPARISON: CR XR PELVIS 1-2V 01/09/2024 12:53 AM FINDINGS: Bones/joints: Degenerative disc disease of the lumbar spine is noted, vacuum disc phenomenon disc space narrowing is noted at L4-L5 and L5-S1. No acute traumatic injury is identified. Soft tissues: Unremarkable. IMPRESSION: 1. No acute traumatic injury is identified. 2. Degenerative disc disease of the lumbar spine is noted, vacuum disc phenomenon disc space narrowing is noted at L4-L5 and L5-S1.
[2024-01-09 03:59] VITALS: BP 101/70; PULSE 73; RESP 16; TEMP 36.9; O2SAT 95
== END 2024-01-09 04:07 | disposition home or self-care (01) ==
PROVIDERS: Emergency Provider Emergency Medicine; PCP Internal Medicine
DX: U07.1 COVID-19 (principal); R53.1 Weakness; R06.02 Shortness of breath; R50.9 Fever, unspecified; I10 Essential (primary) hypertension; E78.5 Hyperlipidemia, unspecified; K21.9 Gastro-esophageal reflux disease without esophagitis; I45.19 Other right bundle-branch block
CPT/HCPCS: 70450; 71045; 72125; 72170; 72192; 73590; 80053; 84484; 85007; 85025; 85027; 87636; 93005; 96361; 96374; 99285; J2405; J7120

== ENCOUNTER 2024-04-06 14:12 | Outpatient (CLI) | payer MEDICARE, SELFPAY ==
[2024-04-06 12:48] LABS: Alanine Aminotransferase 51 U/L (12-78); Albumin Level 4.4 g/dl (3.5-5.0); Albumin/Globulin Ratio 1.8 (1.1-1.8); Alkaline Phosphatase 75 U/L (38-126); Anion Gap 15.1 mEq/L (5-15); Aspartate Amino Transferase 32 U/L (17-59); Bilirubin,Total 1.4 mg/dl (0.2-1.3); Blood Urea Nitrogen 24 mg/dl (9-20); Calcium 9.5 mg/dl (8.4-10.2); Carbon Dioxide 24 mmol/L (22.0-30.0); Chloride 102 mmol/L (98-107); Chol/HDL Ratio 4.2 (1-3.5); Cholesterol 162 mg/dl (140-200); Estimated Glomerular Filt Rate 93 ml/min (>60); GFR (African American) 112 ML/MIN (>60); Globulin 2.4 g/dL (1.3-3.2); Glucose 79 mg/dl (74-100); HDL Cholesterol 39 mg/dl (40-60); Potassium 4.1 mmoL/L (3.5-5.1); Sodium 137 mmol/L (136-145); Total Protein,Serum 6.8 g/dl (6.3-8.2); Triglycerides 134 mg/dl (30-150); VLDL Cholesterol 27 mg/dL (0-40)
[2024-04-06 12:59] LABS: Direct LDL Cholesterol 115.69 mg/dL (100-129)
[2024-04-06 13:19] LABS: Prostate Specific Ag Screen 0.7 ng/ml (0.0-4.0)
== END 2024-04-06 23:59 | disposition home or self-care (01) ==
LOC: LAB.DROPOF 14:12
PROVIDERS: PCP Internal Medicine; Visit Provider Internal Medicine
DX: E78.5 Hyperlipidemia, unspecified (principal); I10 Essential (primary) hypertension; Z12.5 Encounter for screening for malignant neoplasm of prostate
CPT/HCPCS: 80053; 80061; G0103

== ENCOUNTER 2024-09-22 09:53 | Day surgery (SDC) | payer MEDICARE, SELFPAY ==
[2024-09-20 16:41] VITALS: BMI 29.4
[2024-09-21 09:59] VITALS: BMI 28.7
[2024-09-22] MEDS: LACTATED RINGERS 1000ML 1,000 ML 50 ML IV (10:16)
[2024-09-22 10:21] VITALS: BP 142/95; PULSE 77; RESP 16; TEMP 36.2; O2SAT 96
--- NOTE | 2024-09-22 10:30 | EXP.ANES.CKL ---
[facility] [place] Disclaimer: The information contained in this section may have been updated after the patient was seen, as this information can be updated by other users. Medical History History of COVID-19 Kidney stone HTN (hypertension), benign HLD (hyperlipidemia) GERD (gastroesophageal reflux disease) Cancer Surgical History Hx of colonoscopy History of prostate surgery Family History Other Cancer Colon cancer Social History Smoking Status: Never smoker alcohol intake: never counseling provided: none substance use type: denies use current occupational status: retired Travel in the last 8 weeks?: None caffeine: No Have you lived/traveled outside [place] in past 30 days?: No Contact w/someone who lives/traveled outside US past 30 days?: No Exposure to someone with infectious disease in past 14 days?: No Do you have a fever (greater than 100.4 F or 38 C)?: No Have you tested positive for COVID-19?: No Exposed to someone with COVID-19 in past 14 days?: No Do you have a sore throat?: No Do you have a cough?: No Do you have any weakness?: No Are you experiencing any nausea/vomitting?: No Do you have any diarrhea?: No Are you experiencing any unusual bleeding?: No Do you have any muscle aches/pain?: No Do you have any abdominal pain?: No Are you experiencing loss of taste or smell?: No [facility] Anesthesia Checklist Patient Identification Patient Identification: Arm Band and Verbal (Name & ) Structural Data Admitted From: Home Planned Operative Procedure/s: EGD Consent for Planned Operative Procedure(s) Verified: Yes Verified Documents: Surgical Consent and History and Physical NPO Status Verified Time NPO: 00:00 Additional verifications Anesthesia Reactions: No Airway Assessment Mallampati Score:: Class II Dentition: Good Dentition Neurological Assessment Level of Consciousness: Awake, Alert and Appropriate Hx Seizures: No Anesthesia Plan Anesthesia Risk discussed: Yes Anesthesia Plan: Verified ASA Class: III Anesthesia Type: MAC
--- NOTE | 2024-09-22 11:09 | EXP.HP ---
History of Present Illness *Admission Date: 09/22/24 *Reason for visit:: History of Ly's esophagus *History of present illness: Mr. Johnson is an 83-year-old gentleman who is here for surveillance endoscopy secondary to a history of Ly's. He does have a history of Ly's esophagus and has had surveillance endoscopies and 2013, January 2016, July 2018 and his last surveillance was July 2021. Biopsies have shown Ly's without dysplasia. This is long segment Ly's esophagus [place] classification C5M5. The patient does report some recent voice weakness and intermittent hiccups after eating sweets with some belching after sweets. The patient also has a personal history of adenomatous colon polyps. The patient did have a colonoscopy in January 2016 and had 5 polyps (tubular adenomas x 5) which were removed. His colonoscopy in July 2018 revealed a 12 mm cecal adenoma and 4 additional adenomatous polyps. His last colonoscopy with me in July 2021 revealed 3 benign polyps (small tubular adenomas x 3) which were removed. I did state that he would not require any further surveillance based upon age. His father had intestinal cancer in his early 80s. The patient does have some mild chronic constipation. He does take the MiraLAX plus Citrucel daily. He reports no rectal bleeding, abdominal pain, weight loss, heartburn, reflux or dysphagia. [facility] Disclaimer: The information contained in this section may have been updated after the patient was seen, as this information can be updated by other users. Medical History History of COVID-19 Kidney stone HTN (hypertension), benign HLD (hyperlipidemia) GERD (gastroesophageal reflux disease) Cancer Surgical History Hx of colonoscopy History of prostate surgery Family History Other Cancer Colon cancer Social History Smoking Status: Never smoker alcohol intake: never counseling provided: none substance use type: denies use current occupational status: retired Travel in the last 8 weeks?: None caffeine: No Have you lived/traveled outside [place] in past 30 days?: No Contact w/someone who lives/traveled outside [place] past 30 days?: No Exposure to someone with infectious disease in past 14 days?: No Do you have a fever (greater than 100.4 F or 38 C)?: No Have you tested positive for COVID-19?: No Exposed to someone with COVID-19 in past 14 days?: No Do you have a sore throat?: No Do you have a cough?: No Do you have any weakness?: No Are you experiencing any nausea/vomitting?: No Do you have any diarrhea?: No Are you experiencing any unusual bleeding?: No Do you have any muscle aches/pain?: No Do you have any abdominal pain?: No Are you experiencing loss of taste or smell?: No Other Medical History Have you received the Flu Vaccine for this season: No Have you received the Pneumonia Vaccine: Yes Review of Systems Review of Systems Review of systems (narrative): Negative *Cardiovascular Comments: Negative *Gastrointestinal Comments: Negative *Genitourinary Comments: Negative *Musculoskeletal Comments: Negative *Neurologic Comments: Negative Meds Home Medications and Allergies Home Medications ?Medication ?Instructions ?Recorded ?Confirmed ?Type aspirin 81 mg chewable tablet 81 mg PO ONCE Heart disease 06/04/17 09/22/24 History (Rc Chewable Low Dose Aspirin) cetirizine 10 mg capsule (Zyrtec) 10 mg PO DAILY Allergy symptoms 06/04/17 09/22/24 History geriatric hrdvninf-uucb-uuwt 1 tab PO QDAY Supplement 06/04/17 09/22/24 History glucosam 750 mg-chondroi 100 1 tab PO DAILY Supplement 06/04/17 09/22/24 History mg-hyalur 1.65 mg-CF borate 108 mg tablet (Move Free Swrve) ibuprofen 100 mg tablet (Advil) 200 mg PO BID Pain 06/04/17 09/22/24 History polyethylene glycol 3350 17 17 g PO QDAY PRN Constipation 06/04/17 09/22/24 History gram/dose oral powder (Miralax) escitalopram oxalate 5 mg tablet 5 mg PO DAILY 07/13/19 09/22/24 History psyllium husk (with sugar) 3 1 tbsp PO DAILY 07/12/24 09/22/24 History gram/12 gram oral powder (Konsyl (sugar)) doxazosin 8 mg tablet 8 mg PO DAILY memory #90 tabs 08/19/24 09/22/24 Rx finasteride 5 mg tablet See Rx Instructions .Route 08/19/24 09/22/24 Rx .COMPLEX #90 tabs omeprazole 20 mg capsule,delayed 20 mg PO BID GERD #60 caps 08/19/24 09/22/24 Rx release pravastatin 40 mg tablet See Rx Instructions .Route 08/19/24 09/22/24 Rx .COMPLEX #90 tabs sildenafil (pulm.hypertension) 20 See Rx Instructions PO .COMPLEX 08/19/24 09/22/24 Rx mg tablet #60 tabs New Prescriptions to Start Prescriptions: Allergies Allergy/AdvReac Type Severity Reaction Status Date / Time No Known Allergies Allergy Verified 09/22/24 10:16 Exam Data for Last 24 hours Vital signs and Labs for Last 24 Hours: Temp Pulse Resp BP Pulse Ox O2 Del Method 97.1 F L 77 16 142/95 H 96 Room Air 09/22/24 10:21 09/22/24 10:21 09/22/24 10:21 09/22/24 10:21 09/22/24 10:21 09/22/24 10:21 I & O for Last 24 hours: Intake & Output 09/19/24 09/20/24 09/21/24 09/22/24 23:59 23:59 23:59 23:59 Weight 205 lb 200 lb *Routine HEENT Exam Head: Present normocephalic Eye: Present EOMI and PERRL ENT: Present mucous membranes moist *Routine Neck Exam Neck: Present supple *Routine Respiratory Exam Respiratory: Present CTA bilaterally *Routine Cardiovascular Exam Cardiovascular: Present RRR *Routine Abdominal Exam Abdominal: Present soft and normoactive bowel sounds; Absent tenderness *Routine Rectal Exam Rectal:: deferred *Routine Genitalia Exam Genitalia:: deferred *Routine Extremities Exam Extremities: Absent cyanosis, clubbing or edema *Routine Skin Exam Skin: Present warm; Absent rash *Routine Neurological Exam Neurological: Present alert and oriented X3 Assessment and Plan *Assessment and plan (1) Barretts esophagus: Status: Chronic Category: Medical Code(s): K22.70 - Ly's esophagus without dysplasia Plan A/P: 1. Ly's esophagus here for surveillance is the preprocedural diagnosis. The patient will be anesthetized/sedated using MAC sedation. The patient has been seen and examined. Cardiac and lung assessment prior to the examination is stable. Proceed with planned surveillance EGD.
--- NOTE | 2024-09-22 11:11 | HMH.PROCNOTE ---
[facility] Procedure Note Date: 09/22/24 Time: 11:29 Procedure Note:: Upper Endoscopy Procedure Report: Esophagogastroduodenoscopy with cold biopsies Endoscopost: Rivas Tirado II, MD Referring Physician: Rishi Balderas MD Date of Procedure: September 22, 2024 Equipment: Olympus GIF 190 standard upper endoscope Sedation: MAC sedation Indications: Mr. Johnson is an 83-year-old gentleman who is here for surveillance upper endoscopy secondary to a history of Ly's esophagus. He does have a history of Ly's esophagus and has had surveillance endoscopies and 2013, January 2016, July 2018 and his last surveillance was July 2021. Biopsies have shown Ly's without dysplasia. This is long segment Ly's esophagus [place] classification C5M5. The patient does report some recent voice weakness and intermittent hiccups after eating sweets with some belching after sweets. The patient also has a personal history of adenomatous colon polyps. The patient did have a colonoscopy in January 2016 and had 5 polyps (tubular adenomas x 5) which were removed. His colonoscopy in July 2018 revealed a 12 mm cecal adenoma and 4 additional adenomatous polyps. His last colonoscopy with vt in July 2021 revealed 3 benign polyps (small tubular adenomas x 3) which were removed. I did state that he would not require any further surveillance based upon age. His father had intestinal cancer in his early 80s. The patient does have some mild chronic constipation. He does take the MiraLAX plus Citrucel daily. He reports no rectal bleeding, abdominal pain, weight loss, heartburn, reflux or dysphagia. Procedure: Prior to the procedure, a history and physical exam was performed, and patient's medications and allergies were reviewed. The risks, benefits and alternatives of the sedation and procedure were discussed with the patient. All questions were answered and informed consent was obtained. The patient was brought to the procedure room. Patient identification and proposed procedure were verified by the physician and the nurse. The patient was placed in a left lateral decubitus position and the scope was passed under direct vision. Throughout the procedure, the patient's blood pressure, pulse, and oxygen saturations were monitored continuously. The upper GI endoscopy was accomplished without difficulty. The patient tolerated the procedure well. Findings: The scope was passed directly into the upper esophagus and advanced to the third portion of the duodenum. The post bulbar duodenum and duodenal bulb were normal with normal mucosa and conniventes. The scope was withdrawn through a normal duodenal bulb and pylorus into the stomach. The antrum body and fundus of the stomach were grossly normal. There is very mild antral gastropathy. Upon retroflexion there was a 3 cm hiatal hernia. The scope was then withdrawn into the esophagus. The diaphragmatic hiatus was at 40 cm. The top of the gastric folds was at 37 cm. This Z-line/squamocolumnar junction was at 32 cm. This was a 5 cm segment of Ly's esophagus ([place] classification C5M5). NBI (narrowband imaging) was utilized and there was glandular mucosa without any areas of atypia or dysplasia. Cold biopsies were taken at 35 and 33 cm from the incisors. There was no evidence of reflux esophagitis. The remainder of the esophageal mucosa was normal. Impression: 1. Ly's esophagus (5 cm segment with [place] classification C5M5)?no NBI evidence of dysplasia 2. Medium size 3 cm hiatal hernia Plan: I would recommend continuation of PPI therapy. If the biopsy showed no evidence of dysplasia, I am not convinced that he will require any further preventive/surveillance endoscopy.
[2024-09-22 11:16] VITALS: O2SAT 95
[2024-09-22 11:29] VITALS: BP 114/68; PULSE 80; RESP 16; TEMP 36.4; O2SAT 97
[2024-09-22 11:39] VITALS: BP 109/71; PULSE 73; RESP 16; O2SAT 95
[2024-09-22 11:49] VITALS: BP 117/69; PULSE 73; RESP 16; O2SAT 95
[2024-09-22 11:59] VITALS: BP 118/72; PULSE 76; RESP 16; O2SAT 96
== END 2024-09-22 12:11 | disposition home or self-care (01) ==
PROVIDERS: PCP Internal Medicine; Visit Provider Internal Medicine Gastroenterology
PROC: 0DJ08ZZ Inspection of Upper Intestinal Tract, Via Natural or Artificial Opening Endoscopic (ICD-10-PCS; CPT 43239; principal; 2024-09-22 11:30)
DX: K22.70 Barrett's esophagus without dysplasia (principal); R49.0 Dysphonia; R06.6 Hiccough; K59.00 Constipation, unspecified; Z86.0101 Personal history of adenomatous and serrated colon polyps; Z80.0 Family history of malignant neoplasm of digestive organs; K31.9 Disease of stomach and duodenum, unspecified; K44.9 Diaphragmatic hernia without obstruction or gangrene
CPT/HCPCS: 43239; 88305; J7120

== ENCOUNTER 2024-10-05 09:05 | Outpatient (CLI) | payer MEDICARE, SELFPAY ==
[2024-10-05 19:16] LABS: Alanine Aminotransferase 29 U/L (12-78); Albumin Level 4.6 g/dl (3.5-5.0); Albumin/Globulin Ratio 1.9 (1.1-1.8); Alkaline Phosphatase 71 U/L (38-126); Anion Gap 16.3 mEq/L (5-15); Aspartate Amino Transferase 33 U/L (17-59); Bilirubin,Total 1.2 mg/dl (0.2-1.3); Blood Urea Nitrogen 18 mg/dl (9-20); Calcium 9.5 mg/dl (8.4-10.2); Carbon Dioxide 26 mmol/L (22.0-30.0); Chloride 101 mmol/L (98-107); Chol/HDL Ratio 4.7 (1-3.5); Cholesterol 135 mg/dl (140-200); Estimated Glomerular Filt Rate 93 ml/min (>60); GFR (African American) 112 ML/MIN (>60); Globulin 2.4 g/dL (1.3-3.2); Glucose 69 mg/dl (74-100); HDL Cholesterol 29 mg/dl (40-60); Potassium 4.3 mmoL/L (3.5-5.1); Sodium 139 mmol/L (136-145); Triglycerides 159 mg/dl (30-150); VLDL Cholesterol 32 mg/dL (0-40)
[2024-10-05 19:31] LABS: Basophils # 0.1 K/mm3 (0-0.2); Eosinophils # 0.1 Kmm3 (0.0-0.4); Eosinophils % 1.5 % (0.1-12.0); Hematocrit 45.5 % (42.0-52.0); Hemoglobin 14.6 g/dL (14.1-18.0); Immature Granulocytes # 0.04 10^3uL; Immature Granulocytes % 0.6 %; Lymphocytes # 1.7 K/mm3 (0.7-4.5); Lymphocytes % 22.8 % (10-50); Mean Corpuscular HGB Conc 32.1 g/dL (31.8-35.4); Mean Corpuscular Hemoglobin 29.4 pg (27.0-31.2); Mean Corpuscular Volume 91.5 fl (80-94); Mean Platelet Volume 11.7 fl (7.4-10.4); Monocytes # 0.5 K/mm3 (0.1-1.0); Monocytes % 7.3 % (1.7-9.3); Neutrophils # 4.9 K/mm3 (1.8-7.8); Neutrophils % 66.8 % (37.0-80.0); Nucleated Red Blood Cells # 0 10^3/uL; Nucleated Red Blood Cells % 0 %; Platelet Count 200 K/mm3 (142-424); Red Blood Count 4.97 M/mm3 (4.60-6.20); Red Cell Distribution Width 13.5 % (11.5-17.5); Red Cell Distribution Width-SD 45.3 fL; White Blood Count 7.3 K/mm3 (4.8-10.8)
== END 2024-10-05 23:59 | disposition home or self-care (01) ==
LOC: LAB.DROPOF 10-06 12:48
PROVIDERS: PCP Internal Medicine; Visit Provider Internal Medicine
DX: E78.5 Hyperlipidemia, unspecified (principal); I10 Essential (primary) hypertension
CPT/HCPCS: 80053; 80061; 85025

== ENCOUNTER 2025-04-03 09:05 | Outpatient (CLI) | payer MEDICARE, SELFPAY ==
[2025-04-03 15:17] LABS: Alanine Aminotransferase 30 U/L (12-78); Albumin Level 4.7 g/dl (3.5-5.0); Albumin/Globulin Ratio 1.8 (1.1-1.8); Alkaline Phosphatase 87 U/L (38-126); Anion Gap 16.4 mEq/L (5-15); Aspartate Amino Transferase 32 U/L (17-59); Bilirubin,Total 0.9 mg/dl (0.2-1.3); Blood Urea Nitrogen 17 mg/dl (9-20); Calcium 9.6 mg/dl (8.4-10.2); Carbon Dioxide 23 mmol/L (22.0-30.0); Chloride 101 mmol/L (98-107); Cholesterol 144 mg/dl (140-200); Creatinine,Serum 0.80 mg/dl (0.66-1.25); Estimated Glomerular Filt Rate 93 ml/min (>60); GFR (African American) 112 ML/MIN (>60); Globulin 2.6 g/dL (1.3-3.2); Glucose 92 mg/dl (74-100); HDL Cholesterol 31 mg/dl (40-60); Potassium 4.4 mmoL/L (3.5-5.1); Sodium 136 mmol/L (136-145); Total Protein,Serum 7.3 g/dl (6.3-8.2); Triglycerides 126 mg/dl (30-150)
--- OUTSIDE RECORDS SUMMARY | 2025-04-04 10:00 | XMS_ITS | Clinical Summary ---
Author Organization Healthcare Address [address] [place] [address] Care Team Providers Care Pharmacist Per Diem Name Role Phone Unavailable Primary Care Provider Unavailabl e Family History Medical History Relation Name Comments Conversions - Other Father prostate problems Other cancer Father Conversions - Other Mother malignan t neoplasm of ovary Relation Name Status Comments Father Mother Social History Tobacco Use Types Packs/Day Years Used Date Smoking Tobacco: Never Alcohol Use Standard Drinks/Week Comments No 0 (1 standard drink = 0.6 oz pure alcohol) Alcoholic Drinks/day: Never Drank Alcohol Sex and Gender Information Value Date Recorded Sex Assigned at Not on file Legal Sex Male 7:33 PM EDT Gender Identity Not on file Sexual Orientation Not on file Last Filed Vital Signs Vital Sign Reading Time Taken Comments Blood Pressure 108/80 10/12/2017 9:59 AM EDT Pulse 102 10/12/2017 9:59 AM EDT Temperature - - Respiratory Rate - - Oxygen Saturation - - Inhaled Oxygen Concentration - - Weight 91.1 kg (200 lb 13.4 oz) 10/12/2017 9:59 AM EDT Height 179.1 cm (5' 10.5 ) 10/12/2017 9:59 AM ED T Body Mass Index 28.41 10/12/2017 9:59 AM EDT Plan of Treatment Not on file
== END 2025-04-03 23:59 ==
LOC: LAB.DROPOF 04-04 09:56
PROVIDERS: PCP Internal Medicine; Visit Provider Internal Medicine
DX: E78.5 Hyperlipidemia, unspecified (principal); I10 Essential (primary) hypertension; M15.0 Primary generalized (osteo)arthritis; L72.3 Sebaceous cyst; L08.9 Local infection of the skin and subcutaneous tissue, unspecified
CPT/HCPCS: 80053; 80061; 87070; 87205

== ENCOUNTER 2025-04-07 10:13 | Outpatient (CLI) | payer MEDICARE, SELFPAY ==
--- OUTSIDE RECORDS SUMMARY | 2025-04-10 10:45 | XMS_ITS | Data Portability ---
Author Organization [place] - [facility] Address [address] [place] [address] Care Team Providers Care Outdoor Studies Director Name Role Phone SIVAKUMAR MURRELL General Surgeon JADEN MARTE Primary Care Provider Assessment No assessment recorded. Plan of Treatment Reminders Order Date Submit Date Provider Last Modified By Organization Details Last Modified Time Details Appointments RECHECK 2024 11:45A M RYAN ANGEL MD Not available Not available Not available Lab urinalysi s panel, auto 2023 024 [email or web address] [facility], [address], [address] [place] [address], [address], 04/28/2024 23:24:19 PSA, serum or plasma 2023 024 [email or web address] [facility], [address], [place], [address], 04/28/2024 23:24:19 urinalysi s panel, auto 2022 023 [email or web address] [facility], [address], [address], [place], [address], 04/21/2023 21:32:18 urinalysi s panel, auto [address] [facility], [address], [address], [place], [address], 04/21/2022 10:45:56 urinalysi s panel, auto [address] [facility], [address], [address], [place], [address], 04/23/2021 22:36:34 urinalysi s panel, auto [address] [facility], [address], [address], [place], [address], 03/22/2020 17:34:32 Referral None recorded. Procedures None recorded. Surgeries None recorded. Imaging None recorded. Medication Orders sildenafi l (pulmonar y hypertens ion) 20 mg tablet 2022 023 [place] [facility][id number], [address], [id number], 04/21/2023 21:32:21 finasteri de 5 mg tablet 2021 022 [place] [facility], [address], [id number], 04/21/2022 10:46:05 doxazosin 8 mg tablet 2021 022 [place] [facility], [address], [id number], 04/21/2022 10:46:04 finasteri de 5 mg tablet 2020 021 [place] [facility], [address], [id number], 04/23/2021 22:36:40 finasteri de 5 mg tablet 2019 020 [facility][id number], [address] [address] [place], [id number], 03/22/2020 17:34:37 Patient TargetsNo targets recorded. Patient Instructions Encounter Date Encounter Id Patient Instructions Last Modified By Organization Details Last Modified Time 03/19/2020 [id number] learning about healthy weight [email or web address] Not available 03/22/2020 17:34:32 benign prostatic hyperplasia: care instructions Not available 03/22/2020 17:34:32 04/19/2021 [id number] learning about healthy weight [email or web address] Not available 04/23/2021 22:36:34 Reason for Referral None Reported. Results Created Date Observation Date Name Description Value Unit Range Abnormal Flag Note LastModifiedBy Organization Detail LastModifiedTime 03/19/2003/19/2020 urina lysis panel , auto Unknown Analyte Clean Catch Not Available [facility] [address] [place] [address], [address], 03/19/2020 12:32:15 03/19/2003/19/2020 urina lysis panel , auto Unknown Analyte Yellow Not Available [facility] [address] [place] [address], [address], 03/19/2020 12:32:15 03/19/2003/19/2020 urina lysis panel , auto Unknown Analyte Clear Not Available [facility] [address] [place] [address], [address], 03/19/2020 12:32:15 03/19/20 20 03/19/2020 urina lysis panel , auto Unknown Analyte 1.015 Not Available [facility] [address], [place], [address], 03/19/2020 12:32:15 03/19/20 20 03/19/2020 urina lysis panel , auto Unknown Analyte 1.003- 1.035 Not Available [facility] [address], [place], [address], 03/19/2020 12:32:15 03/19/2003/19/2020 urina lysis panel , auto Unknown Analyte 5.0 Not Available [facility] [address] [place] [address] Rd [address], [place], [address], 03/19/2020 12:32:15 03/19/2003/19/2020 urina lysis panel , auto Unknown Analyte 5.0-8. 0 Not Available [facility] [address], [place], [address], 03/19/2020 12:32:15 03/19/2003/19/2020 urina lysis panel , auto Unknown Analyte Negati ve Not Available [facility] [address] [place] [address] Rd [address], [place], [address], 03/19/2020 12:32:15 03/19/2003/19/2020 urina lysis panel , auto Unknown Analyte Negati ve Not Available [facility] [address] [place] [address] Rd [address], [place], [address], 03/19/2020 12:32:15 03/19/2003/19/2020 urina lysis panel , auto Unknown Analyte Negati ve Not Available [facility] [address] [place] [address] Rd [address], [place], [address], 03/19/2020 12:32:15 03/19/2003/19/2020 urina lysis panel , auto Unknown Analyte Negati ve Not Available [facility] [address], [place], [address], 03/19/2020 12:32:15 03/19/2003/19/2020 urina lysis panel , auto Unknown Analyte Negati ve Not Available [facility] [address] [place] [address] Rd [address], [place], [address], 03/19/2020 12:32:15 03/19/2003/19/2020 urina lysis panel , auto Unknown Analyte Negati ve Not Available [facility] [address], [place], [address], 03/19/2020 12:32:15 03/19/2003/19/2020 urina lysis panel , auto Unknown Analyte Normal Not Available [facility] [address] [place] [address] Rd [address], [place], [address], 03/19/2020 12:32:15 03/19/2003/19/2020 urina lysis panel , auto Unknown Analyte Normal Not Available [facility] [address] [place] [address] Rd [address], [place], [address], 03/19/2020 12:32:15 03/19/2003/19/2020 urina lysis panel , auto Unknown Analyte 15 mg/dl (Sm) Not Available [facility] [address] [place] [address] Rd [address], [place], [address], 03/19/2020 12:32:15 03/19/2003/19/2020 urina lysis panel , auto Unknown Analyte Negati ve Not Available [facility] [address], [place], [address], 03/19/2020 12:32:15 03/19/2003/19/2020 urina lysis panel , auto Unknown Analyte Normal Not Available [facility] [address], [place], [address], 03/19/2020 12:32:15 03/19/2003/19/2020 urina lysis panel , auto Unknown Analyte Normal 1 mg/dl Not Available [facility] [address], [place], [address], 03/19/2020 12:32:15 03/19/2003/19/2020 urina lysis panel , auto Unknown Analyte Negati ve Not Available [facility] [address], [place], [address], 03/19/2020 12:32:15 03/19/2003/19/2020 urina lysis panel , auto Unknown Analyte Negati ve Not Available [facility] [address], [place], [address], 03/19/2020 12:32:15 03/19/2003/19/2020 urina lysis panel , auto Unknown Analyte Negati ve Not Available [facility] [address], [place], [address], 03/19/2020 12:32:15 03/19/2003/19/2020 urina lysis panel , auto Unknown Analyte Negati ve Not Available [facility] [address], [place], [address], 03/19/2020 12:32:15 04/19/20 21 04/19/2021 urina lysis panel , auto Unknown Analyte Clean Catch Not Available [facility] [address], [place], [address], 04/19/2021 12:26:54 04/19/2004/19/2021 urina lysis panel , auto Unknown Analyte Yellow Not Available [facility] [address], [place], [address], 04/19/2021 12:26:54 04/19/2004/19/2021 urina lysis panel , auto Unknown Analyte Clear Not Available [facility] [address], [place], [address], 04/19/2021 12:26:54 04/19/2004/19/2021 urina lysis panel , auto Unknown Analyte 1.020 Not Available [facility] [address], [place], [address], 04/19/2021 12:26:54 04/19/2004/19/2021 urina lysis panel , auto Unknown Analyte 1.003- 1.035 Not Available [facility] [address], [place], [address], 04/19/2021 12:26:54 04/19/20 21 04/19/2021 urina lysis panel , auto Unknown Analyte 5.0 Not Available [facility] [address], [place], [address], 04/19/2021 12:26:54 04/19/2004/19/2021 urina lysis panel , auto Unknown Analyte 5.0-8. 0 Not Available [facility] [address], [place], [address], 04/19/2021 12:26:54 04/19/2004/19/2021 urina lysis panel , auto Unknown Analyte Negati ve Not Available [facility] [address] [place] [address] Rd [address], [place], [address], 04/19/2021 12:26:54 04/19/2004/19/2021 urina lysis panel , auto Unknown Analyte Negati ve Not Available [facility] [address], [place], [address], 04/19/2021 12:26:54 04/19/20 21 04/19/2021 urina lysis panel , auto Unknown Analyte Negati ve Not Available [facility] [address], [place], [address], 04/19/2021 12:26:54 04/19/20 21 04/19/2021 urina lysis panel , auto Unknown Analyte Negati ve Not Available [facility] [address] [place] [address] Rd [address], [place], [address], 04/19/2021 12:26:54 04/19/20 21 04/19/2021 urina lysis panel , auto Unknown Analyte Negati ve Not Available [facility] [address], [place], [address], 04/19/2021 12:26:54 04/19/2004/19/2021 urina lysis panel , auto Unknown Analyte Negati ve Not Available [facility] [address], [place], [address], 04/19/2021 12:26:54 04/19/2004/19/2021 urina lysis panel , auto Unknown Analyte Normal Not Available [facility] [address], [place], [address], 04/19/2021 12:26:54 04/19/2004/19/2021 urina lysis panel , auto Unknown Analyte Normal Not Available [facility] [address], [place], [address], 04/19/2021 12:26:54 04/19/2004/19/2021 urina lysis panel , auto Unknown Analyte 15 mg/dl (Sm) Not Available [facility] [address], [place], [address], 04/19/2021 12:26:54 04/19/2004/19/2021 urina lysis panel , auto Unknown Analyte Negati ve Not Available [facility] [address], [place], [address], 04/19/2021 12:26:54 04/19/20 21 04/19/2021 urina lysis panel , auto Unknown Analyte Normal Not Available [facility] [address], [place], [address], 04/19/2021 12:26:54 04/19/20 21 04/19/2021 urina lysis panel , auto Unknown Analyte Normal 1 mg/dl Not Available [facility] [address], [place], [address], 04/19/2021 12:26:54 04/19/20 21 04/19/2021 urina lysis panel , auto Unknown Analyte Negati ve Not Available [facility] [address], [place], [address], 04/19/2021 12:26:54 04/19/20 21 04/19/2021 urina lysis panel , auto Unknown Analyte Negati ve Not Available [facility] [address], [place], [address], 04/19/2021 12:26:54 04/19/20 21 04/19/2021 urina lysis panel , auto Unknown Analyte Negati ve Not Available [facility] [address], [place], [address], 04/19/2021 12:26:54 04/19/20 21 04/19/2021 urina lysis panel , auto Unknown Analyte Negati ve Not Available [facility] [address], [place], [address], 04/19/2021 12:26:54 04/21/20 22 04/21/2022 urina lysis panel , auto Unknown Analyte Clean Catch Not Available [facility] [address], [place], [address], 04/21/2022 10:19:47 04/21/20 22 04/21/2022 urina lysis panel , auto Unknown Analyte Yellow Not Available [facility] [address], [place], [address], 04/21/2022 10:19:47 04/21/20 22 04/21/2022 urina lysis panel , auto Unknown Analyte Clear Not Available [facility] [address], [place], [address], 04/21/2022 10:19:47 04/21/20 22 04/21/2022 urina lysis panel , auto Unknown Analyte 1.010 Not Available [facility] [address], [place], [address], 04/21/2022 10:19:47 04/21/20 22 04/21/2022 urina lysis panel , auto Unknown Analyte 5.0 Not Available [facility] [address], [place], [address], 04/21/2022 10:19:47 04/21/20 22 04/21/2022 urina lysis panel , auto Unknown Analyte Negati ve Not Available [facility] [address], [place], [address], 04/21/2022 10:19:47 04/21/20 22 04/21/2022 urina lysis panel , auto Unknown Analyte Negati ve Not Available [facility] [address], [place], [address], 04/21/2022 10:19:47 04/21/20 22 04/21/2022 urina lysis panel , auto Unknown Analyte Negati ve Not Available [facility] [address], [place], [address], 04/21/2022 10:19:47 04/21/20 22 04/21/2022 urina lysis panel , auto Unknown Analyte Normal Not Available [facility] [address], [place], [address], 04/21/2022 10:19:47 04/21/20 22 04/21/2022 urina lysis panel , auto Unknown Analyte Negati ve Not Available [facility] [address], [place], [address], 04/21/2022 10:19:47 04/21/20 22 04/21/2022 urina lysis panel , auto Unknown Analyte Normal Not Available [facility] [address], [place], [address], 04/21/2022 10:19:47 04/21/20 22 04/21/2022 urina lysis panel , auto Unknown Analyte Negati ve Not Available [facility] [address], [place], [address], 04/21/2022 10:19:47 04/21/20 22 04/21/2022 urina lysis panel , auto Unknown Analyte Negati ve Not Available [facility] [address], [place], [address], 04/21/2022 10:19:47 04/21/20 23 04/21/2023 urina lysis panel , auto Unknown Analyte Clean Catch Not Available [facility] [address], [place], [address], 04/21/2023 14:24:22 04/21/20 23 04/21/2023 urina lysis panel , auto Unknown Analyte Yellow Not Available [facility] [address], [place], [address], 04/21/2023 14:24:22 04/21/20 23 04/21/2023 urina lysis panel , auto Unknown Analyte Clear Not Available [facility] [address], [place], [address], 04/21/2023 14:24:22 04/21/20 23 04/21/2023 urina lysis panel , auto Unknown Analyte 1.030 Not Available [facility] [address] [place] [address] Rd [address], [place], [address], 04/21/2023 14:24:22 04/21/20 23 04/21/2023 urina lysis panel , auto Unknown Analyte 1.003- 1.035 Not Available [facility] [address], [place], [address], 04/21/2023 14:24:22 04/21/20 23 04/21/2023 urina lysis panel , auto Unknown Analyte 5.0 Not Available [facility] [address], [place], [address], 04/21/2023 14:24:22 04/21/20 23 04/21/2023 urina lysis panel , auto Unknown Analyte 5.0-8. 0 Not Available [facility] [address] [place] [address] Rd [address], [place], [address], 04/21/2023 14:24:22 04/21/20 23 04/21/2023 urina lysis panel , auto Unknown Analyte 25 Alonzo/ul Trace Not Available [facility] [address] [place] [address] Rd [address], [place], [address], 04/21/2023 14:24:22 04/21/20 23 04/21/2023 urina lysis panel , auto Unknown Analyte Negati ve Not Available [facility] [address], [place], [address], 04/21/2023 14:24:22 04/21/20 23 04/21/2023 urina lysis panel , auto Unknown Analyte Negati ve Not Available [facility] [address], [place], [address], 04/21/2023 14:24:22 04/21/20 23 04/21/2023 urina lysis panel , auto Unknown Analyte Negati ve Not Available [facility] [address] [place] [address] [address], [place], [address], 04/21/2023 14:24:22 04/21/20 23 04/21/2023 urina lysis panel , auto Unknown Analyte 30 mg/dl (+) Not Available [facility] [address] [place] [address] [address], [place], [address], 04/21/2023 14:24:22 04/21/20 23 04/21/2023 urina lysis panel , auto Unknown Analyte Negati ve Not Available [facility] [address], [place], [address], 04/21/2023 14:24:22 04/21/20 23 04/21/2023 urina lysis panel , auto Unknown Analyte Normal Not Available [facility] [address] [place] [address] [address], [place], [address], 04/21/2023 14:24:22 04/21/20 23 04/21/2023 urina lysis panel , auto Unknown Analyte Normal Not Available [facility] [address] [place] [address] [address], [place], [address], 04/21/2023 14:24:22 04/21/20 23 04/21/2023 urina lysis panel , auto Unknown Analyte 15 mg/dl (Sm) Not Available [facility] [address] [place] [address] [address], [place], [address], 04/21/2023 14:24:22 04/21/20 23 04/21/2023 urina lysis panel , auto Unknown Analyte Negati ve Not Available [facility] [address] [place] [address] [address], [place], [address], 04/21/2023 14:24:22 04/21/20 23 04/21/2023 urina lysis panel , auto Unknown Analyte 4 mg/dl Not Available [facility] [address] [place] [address] [address], [place], [address], 04/21/2023 14:24:22 04/21/20 23 04/21/2023 urina lysis panel , auto Unknown Analyte Normal 1 mg/dl Not Available [facility] [address], [place], [address], 04/21/2023 14:24:22 04/21/20 23 04/21/2023 urina lysis panel , auto Unknown Analyte Negati ve Not Available [facility] [address], [place], [address], 04/21/2023 14:24:22 04/21/20 23 04/21/2023 urina lysis panel , auto Unknown Analyte Negati ve Not Available [facility] [address], [place], [address], 04/21/2023 14:24:22 04/21/20 23 04/21/2023 urina lysis panel , auto Unknown Analyte Negati ve Not Available [facility] [address], [place], [address], 04/21/2023 14:24:22 04/21/20 23 04/21/2023 urina lysis panel , auto Unknown Analyte Negati ve Not Available [facility] [address], [place], [address], 04/21/2023 14:24:22 04/27/20 24 04/27/2024 PSA, serum or plasm a PSA 0.88 NG/mL 0.0 - 4.0 Not Available [facility] [address], [place], [address], 04/27/2024 13:15:27 04/27/20 24 04/27/2024 urina lysis panel , auto Unknown Analyte Clean Catch Not Available [facility] [address] [place] [address] Rd [address], [place], [address], 04/27/2024 12:56:21 04/27/20 24 04/27/2024 urina lysis panel , auto Unknown Analyte Yellow Not Available [facility] [address], [place], [address], 04/27/2024 12:56:21 04/27/2004/27/2024 urina lysis panel , auto Unknown Analyte Clear Not Available [facility] [address], [place], [address], 04/27/2024 12:56:21 04/27/20 24 04/27/2024 urina lysis panel , auto Unknown Analyte 1.015 Not Available [facility] [address] [place] [address] Rd [address], [place], [address], 04/27/2024 12:56:21 04/27/20 24 04/27/2024 urina lysis panel , auto Unknown Analyte 1.003- 1.035 Not Available [facility] [address] [place] [address] Rd [address], [place], [address], 04/27/2024 12:56:21 04/27/20 24 04/27/2024 urina lysis panel , auto Unknown Analyte 6.0 Not Available [facility] [address] [place] [address] Rd [address], [place], [address], 04/27/2024 12:56:21 04/27/20 24 04/27/2024 urina lysis panel , auto Unknown Analyte 5.0-8. 0 Not Available [facility] [address] [place] [address] Rd [address], [place], [address], 04/27/2024 12:56:21 04/27/20 24 04/27/2024 urina lysis panel , auto Unknown Analyte Negati ve Not Available [facility] [address] [place] [address] Rd [address], [place], [address], 04/27/2024 12:56:21 04/27/20 24 04/27/2024 urina lysis panel , auto Unknown Analyte Negati ve Not Available [facility] [address] [place] [address] Rd [address], [place], [address], 04/27/2024 12:56:21 04/27/20 24 04/27/2024 urina lysis panel , auto Unknown Analyte Negati ve Not Available [facility] [address] [place] [address] Rd [address], [place], [address], 04/27/2024 12:56:21 04/27/20 24 04/27/2024 urina lysis panel , auto Unknown Analyte Negati ve Not Available [facility] [address] [place] [address] Rd [address], [place], [address], 04/27/2024 12:56:21 04/27/20 24 04/27/2024 urina lysis panel , auto Unknown Analyte Negati ve Not Available [facility] [address] [place] [address] Rd [address], [place], [address], 04/27/2024 12:56:21 04/27/20 24 04/27/2024 urina lysis panel , auto Unknown Analyte Negati ve Not Available [facility] [address] [place] [address] Rd [address], [place], [address], 04/27/2024 12:56:21 04/27/20 24 04/27/2024 urina lysis panel , auto Unknown Analyte Normal Not Available [facility] [address] [place] [address] Rd [address], [place], [address], 04/27/2024 12:56:21 04/27/20 24 04/27/2024 urina lysis panel , auto Unknown Analyte Normal Not Available [facility] [address], [place], [address], 04/27/2024 12:56:21 04/27/20 24 04/27/2024 urina lysis panel , auto Unknown Analyte Negati ve Not Available [facility] [address], [place], [address], 04/27/2024 12:56:21 04/27/20 24 04/27/2024 urina lysis panel , auto Unknown Analyte Negati ve Not Available [facility] [address], [place], [address], 04/27/2024 12:56:21 04/27/20 24 04/27/2024 urina lysis panel , auto Unknown Analyte 1 mg/dl Not Available [facility] [address] [place] [address] Rd [address], [place], [address], 04/27/2024 12:56:21 04/27/20 24 04/27/2024 urina lysis panel , auto Unknown Analyte Normal 1 mg/dl Not Available [facility] [address], [place], [address], 04/27/2024 12:56:21 04/27/20 24 04/27/2024 urina lysis panel , auto Unknown Analyte Negati ve Not Available [facility] [address], [place], [address], 04/27/2024 12:56:21 04/27/20 24 04/27/2024 urina lysis panel , auto Unknown Analyte Negati ve Not Available [facility] [address], [place], [address], 04/27/2024 12:56:21 04/27/20 24 04/27/2024 urina lysis panel , auto Unknown Analyte Negati ve Not Available [facility] [address] [place] [address] Rd [address], [place], [address], 04/27/2024 12:56:21 04/27/20 24 04/27/2024 urina lysis panel , auto Unknown Analyte Negati ve Not Available [facility] [address] [place] [address] Rd [address], [place], [address], 04/27/2024 12:56:21 Result Notes None recorded. Problems Name Problem SNOMED Code Status Onset Date Resolution Date Notes Provider Name and Address Organization Details Recorded Time Arthritis 6337699 Active Viviane Sharma null, [facility] 0 12:30:55 Hemorrhoids 60775169 Active Viviane Sharma null, [facility] 0 12:30:55 Hypertensive disorder 83834159 Active Viviane Sharma null, [facility] 0 12:30:55 Gastroesophage al reflux disease 803717303 Active Viviane Sharma [facility] 0 12:30:55 Hyperlipidemia 36054955 Active Viviane Sharma [facility] 0 12:30:55 Large prostate 980581522 Active Viviane Sharma [facility] 0 12:30:55 Backache 394805617 Active Viviane Sharma [facility] 0 12:30:55 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 Procedures Surgical History Date Name Laterality Status Provider Name and Address Organization Details Recorded Time 10/30/19 18 TRANSURETHRAL RESECTION OF PROSTATE (SURG) completed Chiquisscott Maurice [facility] 11/02/2017 09:20:34 excision of melanoma completed Lucretia [facility] 05/16/2019 08:30:10 Imaging Results None recorded. Procedure Notes None recorded. Medical Equipment None Reported. Allergies No known drug allergies Medications Name Sig Start Date Stop Date Status Note LastModified by Organization Details LastModified Time Zyrtec-D 5 mg-120 mg tablet,ex tended release Daily active Frequenc y: daily;Me dication Descript ion: cetirizi ne-pseud oephedri ne; Dosage:1 ; Route:or al; refills: 0 Not Available Not Available Not Available polyethyl saeid glycol 3350 17 gram oral powder packet As Directed 2013 active Instruct ions: mix 17gm with 8 oz of water qd;Frequ ency: as direct.; Medicati on Descript ion: polyethy egorge glycol 3350; Dosage:a s directed ; Route:or al; refills: 11; Quantity :527GM powder for reconsti tution Not Available Not Available Not Available pravastat in 40 mg tablet active Medicati on Descript ion: pravasta tin; Route:or al; refills: 0 Not Available Not Available Not Available doxazosin 8 mg tablet Take 1 tablet every day by oral route. 2021 active Not Available Not Available Not Avai lable ursodiol 300 mg capsule Two times a day 05/16 completed Frequenc y: bid;Medi cation Descript ion: ursodiol ; Dosage:2 ; Route:or al; refills: 11; Quantity :120 capsule Not Available Not Available Not Available SHARMAINE 250 250 mg tablet Two times a day 05/16 completed Frequenc y: bid;Medi cation Descript ion: ursodiol ; Dosage:2 ; Route:or al; refills: 11; Quantity :120 tablet Not Available Not Available Not Available omeprazol e 20 mg capsule,d elayed release Two times a day 2015 active Frequenc y: bid;Medi cation Descript ion: omeprazo le; Dosage:1 ; Route:or al; refills: 11; Quantity :60 delayed release capsule Not Available Not Available Not Available aspirin 81 mg tablet Daily active Duration : 30 days;El quency: daily;Me dication Descript ion: aspirin; Dosage:1 ; refills: 0; Quantity :30 Not Available Not Available Not Available finasteri de 5 mg tablet TAKE 1 TABLET BY MOUTH ONCE DAILY. 2021 active Not Available Not Available Not Avai lable Prilosec OTC 20 mg tablet,de layed release Daily 05/16 completed Frequenc y: daily;Me dication Descript ion: omeprazo le; Dosage:1 ; Route:or al; refills: 0 Not Available Not Available Not Available gabapenti n 300 mg tablet 05/16 completed Medicati on Descript ion: gabapent in; refills: 0 Not Available Not Available Not Available sildenafi l (pulmonar y hypertens ion) 20 mg tablet Take 2 tablets every day by oral route as needed. 2022 active Not Available Not Available Not Avai lable Cardura Daily active Frequenc y: daily;Me dication Descript ion: doxazosi n; Dosage:1 ; Route:or al; refills: 0; Quantity :30 tablet Not Available Not Available Not Available Advil active Not Available Not Availa ble Not Available multivita min active Not Available Not Available Not Available Suprep Bowel Prep Kit 17.5 gram-3.13 gram-1.6 gram oral solution As Directed 04/27 completed Instruct ions: use as directed ;Frequen cy: as direct.; Medicati on Descript ion: magnesiu m/potass ium/sodi um sulfates ; Dosage:a s directed ; Route:or al; refills: 0; Quantity :1 liquid Not Available Not Available Not Available Vitals Date Recorded Body height Body mass index (BMI) Body weight Provider Name and Address Organization Details Last Updated DateTime 03/19/2020 179.07 cm 29.1 kg/m2 86386.03 g Viviane Sharma [facility] 03/19/2020 12:30:49 Date Recorded Body height Body mass index (BMI) Body weight Provider Name and Address Organization Details Last Updated DateTime 04/19/2021 179.07 cm 29.1 kg/m2 82572.03 g Mabel Luna [facility] 04/19/2021 12:26:12 Date Recorded Body height Body mass index (BMI) Body weight Provider Name and Address Organization Details Last Updated DateTime 04/21/2022 179.07 cm 29.7 kg/m2 07011.4 g Ramona Ramos [facility] 04/21/2022 10:18:15 Date Recorded Body height Body mass index (BMI) Body weight Provider Name and Address Organization Details Last Updated DateTime 04/21/2023 177.8 cm 29.1 kg/m2 65576.25 g Earle Zimmerman [facility] 04/21/2023 14:23:54 Date Recorded Body height Body mass index (BMI) Body weight Provider Name and Address Organization Details Last Updated DateTime 04/27/2024 175.26 cm 29.2 kg/m2 76977.29 g Alondra Nicolas [facility] 04/27/2024 12:57:30 Social History Question Answer Notes LastModified by Organizat ion Details LastModified Time Tobacco Smoking Status [facility] 08:29:34 How Much Tobacco Do You Chew? None [email or web address] Information not available 03/19/2020 Marital Status [email or web address] Informatio n not available 03/19/2020 What Was The Date Of Your Most Recent Tobacco Screening? 04/19/2021 [email or web address] Information not available 04/19/2021 How Much Tobacco Do You Smoke? No [email or web address] Information not available 03/19/2020 Sex: Unknown Functional Status Question Answer Note LastModified by Organization D etails LastModified Time What is your level of alcohol consumption? None [email or web address] Information not available 03/19/2020 Mental Status None recorded. Family History Relationship Description Onset Age of this Age Resolved Age Notes LastModified by Organization Details LastModified Time Father Malignant neoplasm of colon [email or web address] Not available 2019 08:28:47 Mother Malignant neoplasm of ovary [email or web address] Not available 2019 08:28:58 Sister Kidney stone Not availa ble 05/16/2019 08:29:15 Sister Migraine Not available 05/16/2019 08:29:26 Medical History Condition Response Arthritis Y Acid Reflux (GERD) Y High Cholesterol Y Past Encounters Encounter ID Performer Location Encounter Start Date Encounter Closed Date Diagnosis/Indication Diagnosis SNOMED-CT Code Diagnosis ICD10 Code Diagnosis IMO Codes Diagnosis Note [id number] SIVAKUMAR MURRELL [facility] [address] [place] [address] 05/16/2019 07:52:17 05/16/2019 08:56:50 Gynecomastia 1202427 N62 [id number] RYAN ANGEL MD [facility] [address] [place] [address] 03/19/2020 11:48:55 03/19/2020 12:52:06 Benign prostatic hyperplasia 647287464 N40.0 Follow-up 1 year with PSA at his PCP prior to visit. He will continue finasterid e [id number] RYAN ANGEL MD [facility] [address] [place] [address] 04/19/2021 10:48:06 04/19/2021 12:26:04 Benign prostatic hyperplasia with outflow obstruction 862918694 N40.1 [id number] RYAN ANGEL MD [facility] [address] [place] [address] 04/21/2022 10:14:50 04/21/2022 10:44:24 Benign prostatic hyperplasia with outflow obstruction 859479332 N40.1 Follow-up 1 year [id number] RYAN ANGEL MD [facility] [address] [place] [address] 04/21/2023 13:14:16 04/21/2023 14:48:39 Benign prostatic hyperplasia with outflow obstruction 129220821 N40.1 Follow-up 1 year Primary er ectile dysfunction 231952421 N52.9 [id number] RYAN ANGEL MD JULIAN [facility] [address] [place] [address] 04/27/2024 12:48:13 05/27/2024 02:09:59 Benign prostatic hyperplasia with outflow obstruction 433824859 N40.1 Follow-up 1 year Health Concerns Section Related Observation LastModified by Organization Detai ls LastModified Time None Recorded Concern Status LastModified by Organization Details LastModified Time None Recorded Advance Directives Directive None Recorded Payers Insurance Date Sequence Insurance Name Policy Number Policy Joshi Covered Member ID Joshi Member ID Guarantor Name 05/27/2024 1 [employer] (MEDICARE REPLACEMENT/A DVANTAGE - PPO) Wilfredo Johnson [id number] Gary Johnson 04/27/2024 1 [place] Wilfredo Johnson [id number] Gary Johnson Notes Date Note Type Note Provider Name and Address Organization Details Recorded Time 03/19/2020 text/html Patient is here for routine follow-up. He previously was followed at the [facility] and was last seen April 19. He has a long history of prostate enlargement he had transurethral resection of prostate by me about 2-1/2 years ago. He typically has nocturia 0. He continues to take finasteride daily as well as doxazosin 8 mg daily. He has had no hematuria. His PSA was 2.04 last week. He is pleased. He has been healthy. RYAN ANGEL MD [address] [place] [address], [address], [facility] 03/22/2020 17:34:59 04/19/2021 text/html Patient here for yearly follow-up. He has a long history of prostate enlargement and a transurethral resection of prostate by me about 3-1/2 years ago. He continues to void well. He continues to take finasteride as well as doxazosin 8 mg daily. He's had no further hematuria. His PSA in March was 0.9. RYAN ANGEL MD [address] [place] [address], [address], [facility] 04/23/2021 22:37:31 04/21/2022 text/html Patient here for yearly follow-up. He has a long history of prostate enlargement and a transurethral resection of prostate by ri about 4-1/2 years ago. He continues to void well. He continues to take finasteride as well as doxazosin 8 mg daily. He's had no further hematuria. His PSA in March was 1.0. RYAN ANGEL MD [address] [place] [address], [address], [facility] 04/21/2022 10:46:22 04/21/2023 text/html Patient is here for yearly follow-up with long history of prostate enlargement. He had transurethral resection of the prostate by me several years ago. He continues to do well. He continues to take finasteride as well as doxazosin 8 mg nightly. PSA today was stable at 1.03. He mentions some difficulty achieving and maintaining an adequate erection we discussed a trial of sildenafil. RYAN ANGEL MD [address] [place] [address], [phone], [facility] 04/21/2023 21:32:54 04/27/2024 text/html Patient is here for scheduled 1 year follow-up. He has a long history of prostate enlargement. He continues to take finasteride as well as doxazosin 8 mg nightly. PSA today is stable at 0. 8 8. His urine specimen today is unremarkable. He is current on his prescriptions. He remained active and healthy. RYAN ANGEL MD [address] [place] [address], [address], [facility] 04/28/2024 23:24:59
--- OUTSIDE RECORDS SUMMARY | 2025-04-10 10:45 | XMS_ITS | Clinical Summary ---
Author Organization Healthcare Address [address] [place] [address] Care Team Providers Care Trials Manager Name Role Phone Unavailable Primary Care Provider [...]
== END 2025-04-07 23:59 ==
LOC: LAB.DROPOF 04-10 10:13
PROVIDERS: PCP Internal Medicine; Visit Provider Internal Medicine
DX: Z12.5 Encounter for screening for malignant neoplasm of prostate (principal)
CPT/HCPCS: G0103